=== PATIENT | male | born 1930 | race Caucasian/White ===

== ENCOUNTER 2017-03-25 16:29 | Inpatient (IN) | payer MEDICARE ==
[~2017-03-25] VITALS: Ht 170.2 cm; Wt 67.1 kg
--- NOTE | 2017-03-25 16:36 | PHYS DOC ---
Adult General Chief Complaint Chief Complaint: SUICDAL IDEATION HPI HPI Patient is a 86 year old male who presents with depression. He lives in independent living in a facility. He has a history of dementia, dyslipidemia , hypertension, coronary disease, GERD, traumatic brain injury. According patient he cut his left wrist approximately 2 weeks ago because his isn't doing as well and he is lost interest. He denies any fevers chills nausea vomiting but states he's had some problems urinating recently. States this all started about the same time that he lost interest. He does have a healing abrasion/laceration to his left wrist. He states he's never had issues with depression the past. He does drink 2 shots of whiskey every day. Review of Systems Review of Systems Constitutional: Denies fever or chills [] Eyes: Denies change in visual acuity, redness, or eye pain [] HENT: Denies nasal congestion or sore throat [] Respiratory: Denies cough or shortness of breath [] Cardiovascular: No additional information not addressed in HPI [] GI: Denies abdominal pain, nausea, vomiting, bloody stools or diarrhea [] : Denies dysuria or hematuria [] Musculoskeletal: Denies back pain or joint pain [] Integument: Denies rash or skin lesions [] Neurologic: Denies headache, focal weakness or sensory changes [] Endocrine: Denies polyuria or polydipsia [] Current Medications Current Medications Current Medications Medications (Trade) Dose Ordered Sig/Maurice Start Time Stop Time Status Last Admin Dose Admin Sodium Chloride 1,000 ml @ 1,000 mls/hr 1X ONCE 03/25/17 17:30 03/25/17 18:29 DC 03/25/17 17:28 1,000 MLS/HR Allergies Allergies Allergies Coded Allergies Type Severity Reaction Last Updated Verified No Known Drug Allergies 03/25/17 No Physical Exam Physical Exam Constitutional: Well developed, well nourished, no acute distress, non-toxic appearance. [] HENT: Normocephalic, atraumatic, bilateral external ears normal, oropharynx moist, no oral exudates, nose normal. [] Eyes: PERRLA, EOMI, conjunctiva normal, no discharge. [] Neck: Normal range of motion, no tenderness, supple, no stridor. [] Cardiovascular:Heart rate regular rhythm, no murmur [] Lungs & Thorax: Bilateral breath sounds clear to auscultation [] Abdomen: Bowel sounds normal, soft, no tenderness, no masses, no pulsatile masses. [] Skin: Warm, dry, no erythema, no rash, well healing incision/abrasion of left wrist. [] Back: No tenderness, no CVA tenderness. [] Extremities: No tenderness, no cyanosis, no clubbing, ROM intact, no edema. [] Neurologic: Alert and oriented x 2, normal motor function, normal sensory function, no focal deficits noted. [] Psychologic: Affect normal, judgement normal, mood normal. [] Current Patient Data Vital Signs Vital Signs Date Time Temp Pulse Resp B/P (MAP) Pulse Ox O2 Delivery O2 Flow Rate FiO2 03/25/17 18:03 80 104/82 (89) 96 Room Air 03/25/17 16:46 98.4 18 98.4 Lab Values Laboratory Tests Test 03/25/17 17:15 White Blood Count 21.2 x10^3/uL (4.0-11.0) H Red Blood Count 4.27 x10^6/uL (4.30-5.70) L Hemoglobin 12.7 g/dL (13.0-17.5) L Hematocrit 37.4 % (39.0-53.0) L Mean Corpuscular Volume 88 fL (79-100) Mean Corpuscular Hemoglobin 30 pg (25-35) Mean Corpuscular Hemoglobin Concent 34 g/dL (31-37) Red Cell Distribution Width 16.0 % (11.5-14.5) H Platelet Count 841 x10^3/uL (140-400) H Neutrophils (%) (Auto) 78 % (31-73) H Lymphocytes (%) (Auto) 9 % (24-48) L Monocytes (%) (Auto) 12 % (0-9) H Eosinophils (%) (Auto) 1 % (0-3) Basophils (%) (Auto) 0 % (0-3) Neutrophils # (Auto) 16.5 x10^3uL (1.8-7.7) H Lymphocytes # (Auto) 2.0 x10^3/uL (1.0-4.8) Monocytes # (Auto) 2.5 x10^3/uL (0.0-1.1) H Eosinophils # (Auto) 0.2 x10^3/uL (0.0-0.7) Basophils # (Auto) 0.1 x10^3/uL (0.0-0.2) Segmented Neutrophils % 80 % (35-66) H Band Neutrophils % 3 % (0-9) Lymphocytes % 3 % (24-48) L Atypical Lymphocytes % (Manual) 1 % (0-0) H Monocytes % 11 % (0-10) H Eosinophils % 1 % (0-5) Basophils % 1 % (0-3) Platelet Estimate Increased (ADEQUATE) Giant Platelets Few Anisocytosis Slight Ovalocytes Few Schistocytes Few Sodium Level 130 mmol/L (136-145) L Potassium Level 4.6 mmol/L (3.5-5.1) Chloride Level 94 mmol/L (98-107) L Carbon Dioxide Level 26 mmol/L (21-32) Anion Gap 10 (6-14) Blood Urea Nitrogen 17 mg/dL (8-26) Creatinine 1.0 mg/dL (0.7-1.3) Estimated GFR (Cockcroft-Gault) 70.5 BUN/Creatinine Ratio 17 (6-20) Glucose Level 117 mg/dL (70-99) H Calcium Level 9.1 mg/dL (8.5-10.1) Total Bilirubin 0.4 mg/dL (0.2-1.0) Aspartate Amino Transferase (AST) 27 U/L (15-37) Alanine Aminotransferase (ALT) 32 U/L (16-63) Alkaline Phosphatase 70 U/L (46-116) Total Protein 7.0 g/dL (6.4-8.2) Albumin 3.9 g/dL (3.4-5.0) Albumin/Globulin Ratio 1.3 (1.0-1.7) Salicylates Level < 2.8 mg/dL (2.8-20.0) L Salicylate Last Dose Date Unk Salicylate Last Dose Time Unk Acetaminophen Level < 10 mcg/ml (10-30) L Acetaminophen Last Dose Date Unk Acetaminophen Last Dose Time Unk Ethyl Alcohol Level < 10 mg/dL (0-10) Laboratory Tests 03/25/17 17:15 Laboratory Tests 03/25/17 17:15 EKG EKG EKG shows sinus rhythm 3-60 bpm with left axis deviation, no ST elevations or T- wave inversions noted, QTC 424 ms, as interpreted by me. [] Radiology/Procedures Radiology/Procedures Chest x-ray shows patchy infiltrates in the left lower lobe, no pneumothorax, no bony abnormalities, as interpreted by me. [facility] [address] [place] [address] IMAGING REPORT Signed PATIENT: ALDAIR OLIVAS ACCOUNT: [id number] : 1930 LOCATION: [address] [place] [address] AGE: 86 SEX: M EXAM STATUS: ADM IN ORD. PHYSICIAN: LAMINE RENE MD REASON: abnormal chest xray PROCEDURE: CT CHEST WO CONTRAST PROCEDURE Chest CT without contrast HISTORY Abnormal chest x-ray. No prior study. Elevated white blood cell count. TECHNIQUE Noncontrast helical CT scanning of the chest was performed. One or more of the following individualized dose reduction techniques were utilized for this study: 1. Automated exposure control 2. Adjustment of the mA and/or kV according to patient size 3. Use of iterative reconstruction technique COMPARISON No previous chest CT available. FINDINGS No focal aneurysmal dilatation of the thoracic aorta is seen. Calcified atheromatous disease of the coronary arteries is seen. The heart size is mildly enlarged. No enlarged thoracic lymphadenopathy is seen. No pleural effusion is seen on the left side. There is minimal pleural effusion on the right side. No pneumothorax is seen. There is some linear atelectasis of the right lung base. No consolidative lung infiltrate or lung mass is seen. The proximal bronchial tree is patent. Compression fractures of T2 and T3 and T12 and L1 are seen. There is a severe compression fracture of L1 which is completely flat. 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 There is posterior protrusion of bony elements into the anterior aspect of the spinal canal. This narrows the AP dimension of the spinal canal down to 6 millimeters. No osteolytic process is seen. IMPRESSION Calcified atheromatous disease of the coronary arteries. Mild cardiomegaly. Minimal pleural effusion on the right side. Right lung base atelectasis. Multiple compression fractures of T2 and T3 and L2 and L1. The compression fracture of L1 is severe with posterior protrusion of bony elements into the spinal canal significantly narrowing the AP dimension of spinal canal down to 6 millimeters. Air is seen within this vertebral body consistent with osteonecrosis. Electronically signed by: Robin Henley MD (March 25, 2017 21:03:00) DICTATED and SIGNED BY: ROBIN HENLEY MD DATE: 03/25/172101 CC: LAMINE RENE MD; NORA CARRINGTON MD; JESENIA MCGREGOR MD ~ Impressions: Suicidal ideations Leukocytosis Hyponatremia Alcohol abuse Multiple compression fractures of thoracic and lumbar spine Course & Med Decision Making Course & Med Decision Making Pertinent Labs and Imaging studies reviewed. (See chart for details) Patient has a sodium of 1:30, was 126 earlier today on the outside labs. He does have a leukocytosis of 21,000 with a x-ray that shows patchy infiltrates in bilateral lower lobes. I ordered a CT scan to evaluate this in addition to blood cultures. Patient's in stable condition at this time being admitted with a one-on-one sitter to the hospitalist. Interim orders have been written. The pat team has assessed them and is helping with placement when stable. CT scan shows multiple fractures of his thoracic and lumbar spine. He is not complaining of a pain or tenderness. I did inform Dr. Mcgregor of the CTs findings. CT of his chest did not show any acute abnormalities. I'm not quite sure why he has a leukocytosis at this time. Dragon Disclaimer Dragon Disclaimer This electronic medical record was generated, in whole or in part, using a voice recognition dictation system. Departure Departure Impression: Primary Impression: Leukocytosis Disposition: ADMITTED INPATIENT Admitting Physician: Miguel Mcgregor Condition: STABLE LAMINE RENE MD March 25, 2017 16:36
--- NOTE | 2017-03-25 17:13 | EKG ---
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
[2017-03-25 17:23] LABS: BASO # 0.1 x10^3/uL (0.0-0.2); BASO % 0 % (0-3); EOS % 1 % (0-3); HEMATOCRIT 37.4 % (39.0-53.0); HEMOGLOBIN 12.7 g/dL (13.0-17.5); LYMPH % 9 % (24-48); MEAN CORPUSCULAR HEMOGLOBIN 30 pg (25-35); MEAN CORPUSCULAR HGB CONC 34 g/dL (31-37); MEAN CORPUSCULAR VOLUME 88 fL (79-100); MONO % 12 % (0-9); NEUT % 78 % (31-73); PLATELET COUNT 841 x10^3/uL (140-400); RED BLOOD COUNT 4.27 x10^6/uL (4.30-5.70); WHITE BLOOD COUNT 21.2 x10^3/uL (4.0-11.0)
[2017-03-25] MEDS ORDERED: IV NORMAL SALINE 1000ML BAG 1,000 ML IV ONE (17:30)
[2017-03-25 17:37] LABS: CALCIUM 9.1 mg/dL (8.5-10.1); GFR 70.5; POTASSIUM 4.6 mmol/L (3.5-5.1)
[2017-03-25 17:41] LABS: ETHANOL < 10 mg/dL (0-10)
[2017-03-25 17:43] LABS: ALBUMIN 3.9 g/dL (3.4-5.0); ALBUMIN/GLOBULIN RATIO 1.3 (1.0-1.7); TOTAL BILIRUBIN 0.4 mg/dL (0.2-1.0)
[2017-03-25 18:41] LABS: % BASOS 1 % (0-3); % EOS 1 % (0-5); PLT ESTIMATE INCREASED (ADEQUATE)
[2017-03-25 18:42] LABS: ANISOCYTOSIS SLIGHT; OVALOCYTES FEW; SCHISTOCYTES FEW
[2017-03-25 19:24] LABS: BILIRUBIN,URINE NEGATIVE (NEG); GLUCOSE,URINE NEGATIVE (NEG); NITRITE,URINE NEGATIVE (NEG); PROTEIN,URINE NEGATIVE (NEG-TRACE); UROBILINOGEN,URINE 0.2 mg/dL (0.2 mg/dL)
[2017-03-25 19:31] LABS: BARBITURATES NEG (NEG); BENZODIAZEPINES NEG (NEG); CANNABINOIDS NEG (NEG); COCAINE NEG (NEG); METHADONE NEG (NEG); OPIATES NEG (NEG); PHENCYCLIDINE NEG (NEG)
[2017-03-25 19:39] LABS: BACTERIA,URINE 0 /HPF (0-FEW); WBC,URINE 0 /HPF (0-4)
--- NOTE | 2017-03-25 21:03 | RAD ---
PROCEDURE Chest CT without contrast HISTORY Abnormal chest x-ray. No prior study. Elevated white blood cell count. TECHNIQUE Noncontrast helical CT scanning of the chest was performed. One or more of the following individualized dose reduction techniques were utilized for this study: 1. Automated exposure control 2. Adjustment of the mA and/or kV according to patient size 3. Use of iterative reconstruction technique COMPARISON No previous chest CT available. FINDINGS No focal aneurysmal dilatation of the thoracic aorta is seen. Calcified atheromatous disease of the coronary arteries is seen. The heart size is mildly enlarged. No enlarged thoracic lymphadenopathy is seen. No pleural effusion is seen on the left side. There is minimal pleural effusion on the right side. No pneumothorax is seen. There is some linear atelectasis of the right lung base. No consolidative lung infiltrate or lung mass is seen. The proximal bronchial tree is patent. Compression fractures of T2 and T3 and T12 and L1 are seen. There is a severe compression fracture of L1 which is completely flat. 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 There is posterior protrusion of bony elements into the anterior aspect of the spinal canal. This narrows the AP dimension of the spinal canal down to 6 millimeters. No osteolytic process is seen. IMPRESSION Calcified atheromatous disease of the coronary arteries. Mild cardiomegaly. Minimal pleural effusion on the right side. Right lung base atelectasis. Multiple compression fractures of T2 and T3 and L2 and L1. The compression fracture of L1 is severe with posterior protrusion of bony elements into the spinal canal significantly narrowing the AP dimension of spinal canal down to 6 millimeters. Air is seen within this vertebral body consistent with osteonecrosis. Electronically signed by: Fly Henley MD (March 25, 2017 21:03:00)
[2017-03-25 22:30] VITALS: BP 145/82
--- NOTE | 2017-03-25 23:20 | RAD ---
PROCEDURE CT head without contrast HISTORY Dizziness TECHNIQUE Axial images are obtained of the head from the skull base through the vertex without IV contrast COMPARISON None. FINDINGS There is moderate diffuse atrophy. There is mild chronic white matter changes. The ventricles are appropriate in size, shape, and location for the patient's age.No obvious intracranial mass, mass-effect, midline shift, hemorrhage or obvious acute infarction is identified.Basilar cisterns are patent. Bone windows demonstrate no acute calvarial abnormality.The visualized paranasal sinuses appear clear. IMPRESSION No acute intracranial process. PQRS Statement: One or more of the following individualized dose reduction techniques were utilized for this study: 1. Automated exposure control. 2. Adjustment of the mA and/or kV according to patient size. 3. Use of iterative reconstruction technique. Electronically signed by: Cezar Miranda MD (March 25, 2017 23:18:15)
[2017-03-26] VITALS (7 sets, daily range): BP systolic 93–149; BP diastolic 52–89
[2017-03-26] MEDS ORDERED: BISA10SU55 RC (00:56)
[2017-03-26] MEDS ORDERED: LORA0.5T PO (00:56)
[2017-03-26] MEDS ORDERED: LISI10TA2 PO (00:56)
[2017-03-26] MEDS ORDERED: MELA3TAB PO (01:00)
[2017-03-26] MEDS ORDERED: QUET50TA5 PO (01:00)
[2017-03-26] MEDS ORDERED: MULT1TAB52 PO (01:00)
[2017-03-26] MEDS ORDERED: SENN8.6T3 PO (01:00)
[2017-03-26] MEDS ORDERED: ACET325T9 PO (01:00)
[2017-03-26] MEDS ORDERED: QUET25TA5 PO (01:00)
[2017-03-26] MEDS ORDERED: SIMV10TA3 PO (01:00)
[2017-03-26] MEDS ORDERED: METO50TA2 PO (01:00)
[2017-03-26 03:39] LABS: BASO % 0 % (0-3); EOS % 2 % (0-3); HEMATOCRIT 36.6 % (39.0-53.0); HEMOGLOBIN 12.4 g/dL (13.0-17.5); LYMPH % 12 % (24-48); MEAN CORPUSCULAR HEMOGLOBIN 30 pg (25-35); MEAN CORPUSCULAR HGB CONC 34 g/dL (31-37); MEAN CORPUSCULAR VOLUME 88 fL (79-100); MONO % 13 % (0-9); NEUT % 73 % (31-73); PLATELET COUNT 721 x10^3/uL (140-400); RED BLOOD COUNT 4.17 x10^6/uL (4.30-5.70); RED CELL DISTRIBUTION WIDTH 15.8 % (11.5-14.5); WHITE BLOOD COUNT 16.8 x10^3/uL (4.0-11.0)
[2017-03-26 04:05] LABS: CALCIUM 8.5 mg/dL (8.5-10.1); CREATININE 0.8 mg/dL (0.7-1.3); GFR 91.2
--- NOTE | 2017-03-26 07:49 | RAD ---
Portable chest, 03/25/2017: History: Elevated white blood cell count The heart is at the upper limits of normal in size. There is calcific plaquing of the aorta. The pulmonary vascularity is normal. There are mild streaky basilar opacities, right greater than left. There is slight pleural thickening inferolaterally on the right compatible with scarring versus a tiny amount pleural fluid. Scattered degenerative changes are present in the spine. IMPRESSION: 1. Borderline cardiomegaly and aortic atherosclerosis. 2. Mild streaky bibasilar atelectasis and/or scarring. 3. Possible tiny right pleural effusion.
[2017-03-26] MEDS ORDERED: chlordiazePOXIDE HCL 25 MG CAPSULE PO PRN (09:30)
[2017-03-26] MEDS ORDERED: BISACODYL 10 MG SUPP.RECT. RC PRN (09:30)
[2017-03-26] MEDS ORDERED: ACETAMINOPHEN 325 MG TABLET. PO PRN (09:30)
[2017-03-26] MEDS: QUEtiapine 25 MG TABLET. PO SCH ×2 (09:43→20:42)
[2017-03-26] MEDS: SENNOSIDES 8.6 MG TABLET PO SCH (09:43)
[2017-03-26] MEDS: MULTIVITAMIN with MINERAL TABLET. PO SCH (09:43)
[2017-03-26] MEDS: LISINOPRIL 10 MG TABLET PO SCH (09:47)
[2017-03-26] MEDS: METOPROLOL TART IMMED RELEASE 50 MG TABLET. PO SCH (09:48)
--- NOTE | 2017-03-26 12:09 | PDOC1 ---
History and Physical Date of Admission Date of Admission DATE: 03/26/17 TIME: 11:59 Identification/Chief Complaint Chief Complaint sent from Lore Lancaster of "depression", MS change Problems: Source Source: Caregiver, Chart review, Patient History of Present Illness History of Present Illness Poor historian, sitter at bedside, HPI mostly taken from ER chart. Apparently whisky drinker everyday, depressed over loss of ? In any case, admitted for hyponatremia of 130-132. when he was brought in for mental status change, presumably from etoh. WBC 21 on admit, down to 16, source unclear. CXR shows some scarring atelectasis , but no signs of active infection (I have personally reviewed), Pt denies any URI sxs, UA neg UDS neg, etoh undetectable BUt looking at rest of labs, platelets 700s, hgb 9 or 11. Unknown status re this thrombocytosis etc, NO family at bedside Ate breakfast fine. \\NO documentation of recent steroid use Past Medical History Cardiovascular: CAD, CHF, HTN, Hyperlipidemia Psych: Depression Past Surgical History Past Surgical History: No pertinent history Family History Family History: Family History Unknown Social History Smoke: No ALCOHOL: none Drugs: None Current Problem List Problem List Problems Medical Problems: (1) Leukocytosis Status: Acute Problems: Current Medications Current Medications Current Medications Sodium Chloride 1,000 ml @ 1,000 mls/hr 1X ONCE IV Last administered on 17:28; Start 03/25/17 at 17:30; Stop 03/25/17 at 18:29; Status DC Acetaminophen (Tylenol) 650 mg PRN Q4HRS PRN PO PAIN; Start 03/26/17 at 09:30 Bisacodyl (Dulcolax Supp) 10 mg PRN DAILY PRN RC CONSTIPATION; Start 03/26/17 at 09:30 Lisinopril (Prinivil) 10 mg DAILY PO Last administered on 03/26/17 09:47; Start 03/26/17 at 10:00 Lorazepam (Ativan) 0.5 mg PRN Q6HRS PRN PO AGITATION; Start 03/26/17 at 09:30 Metoprolol Tartrate (Lopressor) 50 mg DAILY PO Last administered on 03/26/17 09 :48; Start 03/26/17 at 10:00 Quetiapine Fumarate (SEROquel) 12.5 mg BID PO Last administered on 03/26/17 09: 43; Start 03/26/17 at 10:00 Sennosides (Senna) 8.6 mg DAILY PO Last administered on 03/26/17 09:43; Start 03/26/17 at 10:00 Simvastatin (Zocor) 10 mg HS PO ; Start 03/26/17 at 21:00 Non-Formulary Medication 5 mg HS PO ; Start 03/26/17 at 21:00; Status UNV Multivitamins (Thera M Plus) 1 tab DAILY PO Last administered on 03/26/17 09:43 ; Start 03/26/17 at 10:00 Quetiapine Fumarate (SEROquel XR) 50 mg HS PO ; Start 03/26/17 at 21:00 Chlordiazepoxide (Librium) 25 mg PRN Q6HRS PRN PO ANXIETY / AGITATION; Start at 09:30 Active Scripts Active Reported Tylenol (Acetaminophen) 325 Mg Tablet 2 Tab PO PRN Q4HRS PRN Simvastatin 10 Mg Tablet 10 Mg PO HS Seroquel (Quetiapine Fumarate) 25 Mg Tablet 0.5 Tab PO BID Senna (Sennosides) 8.6 Mg Tablet 8.6 Mg PO DAILY Seroquel (Quetiapine Fumarate) 50 Mg Tablet 50 Mg PO HS Multivitamins (Multivitamin) 1 Each Tablet 1 Each PO DAILY Metoprolol Tartrate 50 Mg Tablet 50 Mg PO DAILY Melatonin 3 Mg Tablet 5 Mg PO HS Lorazepam 0.5 Mg Tablet 0.5 Mg PO PRN Q6HRS PRN Lisinopril 10 Mg Tablet 10 Mg PO DAILY Dulcolax (Bisacodyl) 10 Mg Supp.rect 10 Mg RC PRN DAILY PRN Allergies Allergies: Coded Allergies: No Known Drug Allergies (Unverified , 03/25/17) ROS Review of System unable to obtain confused Physical Exam General: Alert, Cooperative, No acute distress HEENT: Atraumatic, PERRLA, EOMI Lungs: Clear to auscultation, Normal air movement Heart: S1S2, RRR, no thrills, no rubs, no gallops Cardiovascular: S1, S2 Abdomen: Normal bowel sounds, Soft, No tenderness, No hepatosplenomegaly, No masses Male Genitals Exam: normal genitalia, normal prostate Rectal Exam: not examined PELVIC: Nml ext genitalia Extremities: No clubbing, No cyanosis, No edema, Normal pulses, No tenderness/ swelling Skin: No rashes, No breakdown, No significant lesion Neuro: Normal gait, Normal speech, Strength at 5/5 X4 ext, Normal tone, Sensation intact, Cranial nerves 3-12 NL, Reflexes 2+ Vitals Vitals Vital Signs Date Time Temp Pulse Resp B/P (MAP) Pulse Ox O2 Delivery O2 Flow Rate FiO2 03/26/17 10:46 97.4 62 15 93/52 (66) 95 Room Air 97.4 Labs Labs Laboratory Tests Test 03/25/17 17:15 03/25/17 19:16 03/26/17 03:00 White Blood Count 21.2 x10^3/uL (4.0-11.0) 16.8 x10^3/uL (4.0-11.0) Red Blood Count 4.27 x10^6/uL (4.30-5.70) 4.17 x10^6/uL (4.30-5.70) Hemoglobin 12.7 g/dL (13.0-17.5) 12.4 g/dL (13.0-17.5) Hematocrit 37.4 % (39.0-53.0) 36.6 % (39.0-53.0) Mean Corpuscular Volume 88 fL (79-100) 88 fL (79-100) Mean Corpuscular Hemoglobin 30 pg (25-35) 30 pg (25-35) Mean Corpuscular Hemoglobin Concent 34 g/dL (31-37) 34 g/dL (31-37) Red Cell Distribution Width 16.0 % (11.5-14.5) 15.8 % (11.5-14.5) Platelet Count 841 x10^3/uL (140-400) 721 x10^3/uL (140-400) Neutrophils (%) (Auto) 78 % (31-73) 73 % (31-73) Lymphocytes (%) (Auto) 9 % (24-48) 12 % (24-48) Monocytes (%) (Auto) 12 % (0-9) 13 % (0-9) Eosinophils (%) (Auto) 1 % (0-3) 2 % (0-3) Basophils (%) (Auto) 0 % (0-3) 0 % (0-3) Neutrophils # (Auto) 16.5 x10^3uL (1.8-7.7) 12.3 x10^3uL (1.8-7.7) Lymphocytes # (Auto) 2.0 x10^3/uL (1.0-4.8) 2.0 x10^3/uL (1.0-4.8) Monocytes # (Auto) 2.5 x10^3/uL (0.0-1.1) 2.2 x10^3/uL (0.0-1.1) Eosinophils # (Auto) 0.2 x10^3/uL (0.0-0.7) 0.3 x10^3/uL (0.0-0.7) Basophils # (Auto) 0.1 x10^3/uL (0.0-0.2) 0.0 x10^3/uL (0.0-0.2) Segmented Neutrophils % 80 % (35-66) Band Neutrophils % 3 % (0-9) Lymphocytes % 3 % (24-48) Atypical Lymphocytes % (Manual) 1 % (0-0) Monocytes % 11 % (0-10) Eosinophils % 1 % (0-5) Basophils % 1 % (0-3) Platelet Estimate Increased (ADEQUATE) Giant Platelets Few Anisocytosis Slight Ovalocytes Few Schistocytes Few Sodium Level 130 mmol/L (136-145) 132 mmol/L (136-145) Potassium Level 4.6 mmol/L (3.5-5.1) 4.0 mmol/L (3.5-5.1) Chloride Level 94 mmol/L (98-107) 97 mmol/L (98-107) Carbon Dioxide Level 26 mmol/L (21-32) 29 mmol/L (21-32) Anion Gap 10 (6-14) 6 (6-14) Blood Urea Nitrogen 17 mg/dL (8-26) 12 mg/dL (8-26) Creatinine 1.0 mg/dL (0.7-1.3) 0.8 mg/dL (0.7-1.3) Estimated GFR (Cockcroft-Gault) 70.5 91.2 BUN/Creatinine Ratio 17 (6-20) Glucose Level 117 mg/dL (70-99) 107 mg/dL (70-99) Calcium Level 9.1 mg/dL (8.5-10.1) 8.5 mg/dL (8.5-10.1) Total Bilirubin 0.4 mg/dL (0.2-1.0) Aspartate Amino Transf (AST/SGOT) 27 U/L (15-37) Alanine Aminotransferase (ALT/SGPT) 32 U/L (16-63) Alkaline Phosphatase 70 U/L (46-116) Total Protein 7.0 g/dL (6.4-8.2) Albumin 3.9 g/dL (3.4-5.0) Albumin/Globulin Ratio 1.3 (1.0-1.7) Salicylates Level < 2.8 mg/dL (2.8-20.0) Salicylate Last Dose Date Unk Salicylate Last Dose Time Unk Acetaminophen Level < 10 mcg/ml (10-30) Acetaminophen Last Dose Date Unk Acetaminophen Last Dose Time Unk Ethyl Alcohol Level < 10 mg/dL (0-10) Urine Collection Type Unknown Urine Color Yellow Urine Clarity Clear Urine pH 6.0 Urine Specific [place] 1.020 Urine Protein Negative mg/dL (NEG-TRACE) Urine Glucose (UA) Negative mg/dL (NEG) Urine Ketones (Stick) Negative mg/dL (NEG) Urine Blood Small (NEG) Urine Nitrite Negative (NEG) Urine Bilirubin Negative (NEG) Urine Urobilinogen Dipstick 0.2 mg/dL (0.2 mg/dL) Urine Leukocyte Esterase Negative (NEG) Urine RBC 6-10 /HPF (0-2) Urine WBC 0 /HPF (0-4) Urine Bacteria 0 /HPF (0-FEW) Urine Mucus Slight /LPF Urine Opiates Screen Neg (NEG) Urine Methadone Screen Neg (NEG) Urine Barbiturates Neg (NEG) Urine Phencyclidine Screen Neg (NEG) Urine Amphetamine/Methamphetamine Neg (NEG) Urine Benzodiazepines Screen Neg (NEG) Urine Cocaine Screen Neg (NEG) Urine Cannabinoids Screen Neg (NEG) Urine Ethyl Alcohol Neg (NEG) Laboratory Tests Test 03/25/17 17:15 03/25/17 19:16 03/26/17 03:00 White Blood Count 21.2 x10^3/uL (4.0-11.0) 16.8 x10^3/uL (4.0-11.0) Red Blood Count 4.27 x10^6/uL (4.30-5.70) 4.17 x10^6/uL (4.30-5.70) Hemoglobin 12.7 g/dL (13.0-17.5) 12.4 g/dL (13.0-17.5) Hematocrit 37.4 % (39.0-53.0) 36.6 % (39.0-53.0) Mean Corpuscular Volume 88 fL (79-100) 88 fL (79-100) Mean Corpuscular Hemoglobin 30 pg (25-35) 30 pg (25-35) Mean Corpuscular Hemoglobin Concent 34 g/dL (31-37) 34 g/dL (31-37) Red Cell Distribution Width 16.0 % (11.5-14.5) 15.8 % (11.5-14.5) Platelet Count 841 x10^3/uL (140-400) 721 x10^3/uL (140-400) Neutrophils (%) (Auto) 78 % (31-73) 73 % (31-73) Lymphocytes (%) (Auto) 9 % (24-48) 12 % (24-48) Monocytes (%) (Auto) 12 % (0-9) 13 % (0-9) Eosinophils (%) (Auto) 1 % (0-3) 2 % (0-3) Basophils (%) (Auto) 0 % (0-3) 0 % (0-3) Neutrophils # (Auto) 16.5 x10^3uL (1.8-7.7) 12.3 x10^3uL (1.8-7.7) Lymphocytes # (Auto) 2.0 x10^3/uL (1.0-4.8) 2.0 x10^3/uL (1.0-4.8) Monocytes # (Auto) 2.5 x10^3/uL (0.0-1.1) 2.2 x10^3/uL (0.0-1.1) Eosinophils # (Auto) 0.2 x10^3/uL (0.0-0.7) 0.3 x10^3/uL (0.0-0.7) Basophils # (Auto) 0.1 x10^3/uL (0.0-0.2) 0.0 x10^3/uL (0.0-0.2) Segmented Neutrophils % 80 % (35-66) Band Neutrophils % 3 % (0-9) Lymphocytes % 3 % (24-48) Atypical Lymphocytes % (Manual) 1 % (0-0) Monocytes % 11 % (0-10) Eosinophils % 1 % (0-5) Basophils % 1 % (0-3) Platelet Estimate Increased (ADEQUATE) Giant Platelets Few Anisocytosis Slight Ovalocytes Few Schistocytes Few Sodium Level 130 mmol/L (136-145) 132 mmol/L (136-145) Potassium Level 4.6 mmol/L (3.5-5.1) 4.0 mmol/L (3.5-5.1) Chloride Level 94 mmol/L (98-107) 97 mmol/L (98-107) Carbon Dioxide Level 26 mmol/L (21-32) 29 mmol/L (21-32) Anion Gap 10 (6-14) 6 (6-14) Blood Urea Nitrogen 17 mg/dL (8-26) 12 mg/dL (8-26) Creatinine 1.0 mg/dL (0.7-1.3) 0.8 mg/dL (0.7-1.3) Estimated GFR (Cockcroft-Gault) 70.5 91.2 BUN/Creatinine Ratio 17 (6-20) Glucose Level 117 mg/dL (70-99) 107 mg/dL (70-99) Calcium Level 9.1 mg/dL (8.5-10.1) 8.5 mg/dL (8.5-10.1) Total Bilirubin 0.4 mg/dL (0.2-1.0) Aspartate Amino Transf (AST/SGOT) 27 U/L (15-37) Alanine Aminotransferase (ALT/SGPT) 32 U/L (16-63) Alkaline Phosphatase 70 U/L (46-116) Total Protein 7.0 g/dL (6.4-8.2) Albumin 3.9 g/dL (3.4-5.0) Albumin/Globulin Ratio 1.3 (1.0-1.7) Salicylates Level < 2.8 mg/dL (2.8-20.0) Salicylate Last Dose Date Unk Salicylate Last Dose Time Unk Acetaminophen Level < 10 mcg/ml (10-30) Acetaminophen Last Dose Date Unk Acetaminophen Last Dose Time Unk Ethyl Alcohol Level < 10 mg/dL (0-10) Urine Collection Type Unknown Urine Color Yellow Urine Clarity Clear Urine pH 6.0 Urine Specific [place] 1.020 Urine Protein Negative mg/dL (NEG-TRACE) Urine Glucose (UA) Negative mg/dL (NEG) Urine Ketones (Stick) Negative mg/dL (NEG) Urine Blood Small (NEG) Urine Nitrite Negative (NEG) Urine Bilirubin Negative (NEG) Urine Urobilinogen Dipstick 0.2 mg/dL (0.2 mg/dL) Urine Leukocyte Esterase Negative (NEG) Urine RBC 6-10 /HPF (0-2) Urine WBC 0 /HPF (0-4) Urine Bacteria 0 /HPF (0-FEW) Urine Mucus Slight /LPF Urine Opiates Screen Neg (NEG) Urine Methadone Screen Neg (NEG) Urine Barbiturates Neg (NEG) Urine Phencyclidine Screen Neg (NEG) Urine Amphetamine/Methamphetamine Neg (NEG) Urine Benzodiazepines Screen Neg (NEG) Urine Cocaine Screen Neg (NEG) Urine Cannabinoids Screen Neg (NEG) Urine Ethyl Alcohol Neg (NEG) VTE Prophylaxis Ordered VTE Prophylaxis Devices: Yes VTE Pharmacological Prophylaxi: Yes Assessment/Plan Assessment/Plan 1. Hyponatremia, mild 2. Dementia, hx TBI per documentation 3. Leukocytosis, thrombocytosis, anemia - no signs of infection 4. ETOH drinker, heavy 5. Hx CAD, stab;e 6. Dementia per documentation 7. [place] resident ([place]) 8. DNR PLAn: I started banana bag- might just do 1 in this elderly then do PO MVI, thimaine, folate SItter COnsult heme onc re leukocytosis, thrombocytosis in the 700s PT/OT DVt prophy DNR Resume home meds Monitor CBC MOnitor for etoh withdrawal GEOVANNI MCNAMARA MD March 26, 2017 12:09
--- NOTE | 2017-03-26 12:39 | PDOC ---
Provider Note Provider Note Onc consult dictated- [id number] Essential thrombocytosis- Followed since 2013 with ASA 81 mg daily only. Given stability and more pressing health concerns currently, would continue same mgt. Neutrophilia- Likely reactive Severe depression, suicidal ideation, alcohol abuse- Per primary. MISAEL RAMAN DO March 26, 2017 12:39
[2017-03-26] MEDS: THIAMINE 100 MG TABLET. PO SCH (14:16)
[2017-03-26] MEDS: ASPIRIN ENTERIC COATED 81 MG TABLET.DR. PO SCH (14:16)
[2017-03-26] MEDS: FOLIC ACID 1 MG TABLET. PO SCH (14:16)
[2017-03-26] MEDS: LORazepam 0.5 MG TABLET PO PRN ×2 (17:27→23:18)
[2017-03-26] MEDS: SIMVASTATIN 10 MG TABLET PO SCH (20:42)
[2017-03-26] MEDS: QUEtiapine 50 MG TAB.ER.24H. PO SCH (20:42)
[2017-03-26] MEDS ORDERED: NON FORMULARY ITEM (Melatonin 5 MG) PO SCH (21:00)
[2017-03-27] MEDS ORDERED: HALOPERIDOL LACTATE 5 MG/ML VIAL. IVP PRN
--- NOTE | 2017-03-27 01:28 | CONS ---
DATE OF CONSULTATION: 03/26/2017 REFERRING PROVIDER: Dr. Donato. REASON FOR CONSULTATION: Neutrophilia and thrombocytosis. HISTORY OF PRESENT ILLNESS: The patient is an 86-year-old male who was admitted to the hospital with altered mental status, depression and suicidal ideation. He himself is a very poor historian. I reviewed both [facility] ER notes and outside Oncology notes. He has been seen since [address] Maximus Madrid for his thrombocytosis, JAK2 positive, likely essential thrombocytosis. He has been on aspirin 81 mg daily previously. His platelet counts generally run around 700-800. Per the last Oncology note available from 2015, if his platelet count reached 1000, anagrelide would be initiated. Per review of the medical record here, he has had significant depression following the loss of his with a suicidal attempt in the last few weeks. He is drinking 2 shots of whiskey daily and is very withdrawn. He also has some mild neutrophilia with WBC 21, down to 16.8 today. His only complaint is urinary retention. PAST MEDICAL HISTORY: Significant depression recently, hyperlipidemia, heart disease, CAD, GERD, TBI, thrombocytosis. PAST SURGICAL HISTORY: Skin biopsy. FAMILY HISTORY: Unable to obtain, not pertinent with his advanced age. SOCIAL HISTORY: Two shots of whiskey daily. Quit smoking in the , recent loss of his . ALLERGIES: No known drug allergies. CURRENT MEDICATIONS: Seroquel, simvastatin, thiamine, folic acid, multivitamins, Senokot-S, metoprolol, lisinopril, Librium, Ativan, Dulcolax and Tylenol. REVIEW OF SYSTEMS: Ten-point review of systems attempted, but unremarkable with the exception of that mentioned in the HPI. He is very withdrawn. PHYSICAL EXAMINATION: VITAL SIGNS: Temperature 97.4, pulse 62, respiratory rate 15, blood pressure 93/52, 95% O2 on room air. GENERAL: He is alert. He is very withdrawn and does not readily provide medical information, stares blankly ahead, no distress at this time. HEENT: Dry mucous membranes. No scleral icterus. CARDIOVASCULAR: Heart is regular in rhythm and rate. LUNGS: Clear to auscultation bilaterally. ABDOMEN: Soft, nontender. EXTREMITIES: No edema. NEUROLOGIC: No focal deficits. PSYCHIATRIC: Very depressed, withdrawn. IMAGING AND LABORATORY DATA: WBC 21.2, now down to 16.8, and strong neutrophil predominance, platelets 841 down to 721 today. Hemoglobin 12.7. CMP notable for sodium 130. CT of head and chest have been negative with the exception of compression fractures noted. ASSESSMENT AND PLAN: The patient is an 86-year-old male with the following medical problems: 1. Chronic thrombocytosis since at least 2013, likely essential thrombocytosis given the JAK2 positivity. Per review of previous outside oncology note, it was recommended he would take aspirin [address] Madrid did not want to start anagrelide unless if platelets reach over 1000. Given his more pressing medical issues of active suicidal ideation and significant depression, it is not pertinent to start any medication at this time, continue aspirin 81 mg daily, which I will add to his medication list. 2. Depression, suicidal ideation. Thank you for allowing me to participate in his care. MISAEL RAMAN DO DR: BERE/bekah JOB#: [id number] / [id number] JOSSE
[2017-03-27 03:00] VITALS: BP 125/92
[2017-03-27 05:45] LABS: BASO # 0.1 x10^3/uL (0.0-0.2); BASO % 1 % (0-3); EOS % 3 % (0-3); HEMATOCRIT 35.5 % (39.0-53.0); LYMPH % 14 % (24-48); MEAN CORPUSCULAR HEMOGLOBIN 30 pg (25-35); MEAN CORPUSCULAR HGB CONC 34 g/dL (31-37); MEAN CORPUSCULAR VOLUME 88 fL (79-100); MONO % 14 % (0-9); NEUT % 68 % (31-73); PLATELET COUNT 632 x10^3/uL (140-400); RED BLOOD COUNT 4.05 x10^6/uL (4.30-5.70); RED CELL DISTRIBUTION WIDTH 16.1 % (11.5-14.5)
[2017-03-27 07:04] VITALS: BP 114/66
[2017-03-27] MEDS: ASPIRIN ENTERIC COATED 81 MG TABLET.DR. PO SCH (08:00)
[2017-03-27] MEDS: FOLIC ACID 1 MG TABLET. PO SCH (09:00)
[2017-03-27] MEDS: THIAMINE 100 MG TABLET. PO SCH (09:00)
[2017-03-27] MEDS: SENNOSIDES 8.6 MG TABLET PO SCH (09:00)
[2017-03-27] MEDS: LISINOPRIL 10 MG TABLET PO SCH (09:00)
[2017-03-27] MEDS: MULTIVITAMIN with MINERAL TABLET. PO SCH (09:00)
[2017-03-27] MEDS: QUEtiapine 25 MG TABLET. PO SCH ×2 (09:00→21:00)
[2017-03-27] MEDS: METOPROLOL TART IMMED RELEASE 50 MG TABLET. PO SCH (09:00)
[2017-03-27 10:02] VITALS: BP 138/81
--- NOTE | 2017-03-27 11:09 | PDOC ---
PROGRESS NOTES Chief Complaint Chief Complaint 1. Hyponatremia, mild 2. Dementia, hx TBI per documentation 3. Leukocytosis, thrombocytosis, anemia - no signs of infection 4. ETOH drinker, heavy 5. Hx CAD, stab;e 6. Dementia per documentation 7. [place] resident ([place]) 8. DNR 9. DEPRESSION, NON SUICIDAL 10. ENCEPHALOPATHY History of Present Illness History of Present Illness Call last night bec of aggressive behavior needed ativan and haldol NOw asleep BM, aleshater changing him LIves in [facility] - unsure if [facility] can accept if this behavior continues Seen by [place] on wednesday before the agitation - no change in dc disposition PLAn: Dec haldol and ativan dose COnt sitter [facility] psych screen might be in order Vitals Vitals Vital Signs Date Time Temp Pulse Resp B/P (MAP) Pulse Ox O2 Delivery O2 Flow Rate FiO2 03/27/17 10:02 98.7 61 15 138/81 (100) 98 Room Air 95.0 98.7 Physical Exam General: Alert, Cooperative, No acute distress Abdomen: Normal bowel sounds, Soft, No tenderness, No hepatosplenomegaly, No masses Extremities: No clubbing, No cyanosis, No edema, Normal pulses, No tenderness/ swelling Skin: No rashes, No breakdown, No significant lesion Labs LABS Laboratory Tests Test 03/27/17 05:00 White Blood Count 14.0 x10^3/uL (4.0-11.0) Red Blood Count 4.05 x10^6/uL (4.30-5.70) Hemoglobin 12.0 g/dL (13.0-17.5) Hematocrit 35.5 % (39.0-53.0) Mean Corpuscular Volume 88 fL (79-100) Mean Corpuscular Hemoglobin 30 pg (25-35) Mean Corpuscular Hemoglobin Concent 34 g/dL (31-37) Red Cell Distribution Width 16.1 % (11.5-14.5) Platelet Count 632 x10^3/uL (140-400) Neutrophils (%) (Auto) 68 % (31-73) Lymphocytes (%) (Auto) 14 % (24-48) Monocytes (%) (Auto) 14 % (0-9) Eosinophils (%) (Auto) 3 % (0-3) Basophils (%) (Auto) 1 % (0-3) Neutrophils # (Auto) 9.6 x10^3uL (1.8-7.7) Lymphocytes # (Auto) 2.0 x10^3/uL (1.0-4.8) Monocytes # (Auto) 2.0 x10^3/uL (0.0-1.1) Eosinophils # (Auto) 0.4 x10^3/uL (0.0-0.7) Basophils # (Auto) 0.1 x10^3/uL (0.0-0.2) Magnesium Level 2.1 mg/dL (1.8-2.4) Review of Systems Review of Systems cant obtain Assessment and Plan Assessmemt and Plan Problems Medical Problems: (1) Leukocytosis Status: Acute Problems: Comment Review of Relevant I have reviewed the following items fernando (where applicable) has been applied. Labs Laboratory Tests Test 03/25/17 17:15 03/25/17 19:16 03/26/17 03:00 03/27/17 05:00 White Blood Count 21.2 x10^3/uL (4.0-11.0) 16.8 x10^3/uL (4.0-11.0) 14.0 x10^3/uL (4.0-11.0) Red Blood Count 4.27 x10^6/uL (4.30-5.70) 4.17 x10^6/uL (4.30-5.70) 4.05 x10^6/uL (4.30-5.70) Hemoglobin 12.7 g/dL (13.0-17.5) 12.4 g/dL (13.0-17.5) 12.0 g/dL (13.0-17.5) Hematocrit 37.4 % (39.0-53.0) 36.6 % (39.0-53.0) 35.5 % (39.0-53.0) Mean Corpuscular Volume 88 fL (79-100) 88 fL (79-100) 88 fL (79-100) Mean Corpuscular Hemoglobin 30 pg (25-35) 30 pg (25-35) 30 pg (25-35) Mean Corpuscular Hemoglobin Concent 34 g/dL (31-37) 34 g/dL (31-37) 34 g/dL (31-37) Red Cell Distribution Width 16.0 % (11.5-14.5) 15.8 % (11.5-14.5) 16.1 % (11.5-14.5) Platelet Count 841 x10^3/uL (140-400) 721 x10^3/uL (140-400) 632 x10^3/uL (140-400) Neutrophils (%) (Auto) 78 % (31-73) 73 % (31-73) 68 % (31-73) Lymphocytes (%) (Auto) 9 % (24-48) 12 % (24-48) 14 % (24-48) Monocytes (%) (Auto) 12 % (0-9) 13 % (0-9) 14 % (0-9) Eosinophils (%) (Auto) 1 % (0-3) 2 % (0-3) 3 % (0-3) Basophils (%) (Auto) 0 % (0-3) 0 % (0-3) 1 % (0-3) Neutrophils # (Auto) 16.5 x10^3uL (1.8-7.7) 12.3 x10^3uL (1.8-7.7) 9.6 x10^3uL (1.8-7.7) Lymphocytes # (Auto) 2.0 x10^3/uL (1.0-4.8) 2.0 x10^3/uL (1.0-4.8) 2.0 x10^3/uL (1.0-4.8) Monocytes # (Auto) 2.5 x10^3/uL (0.0-1.1) 2.2 x10^3/uL (0.0-1.1) 2.0 x10^3/uL (0.0-1.1) Eosinophils # (Auto) 0.2 x10^3/uL (0.0-0.7) 0.3 x10^3/uL (0.0-0.7) 0.4 x10^3/uL (0.0-0.7) Basophils # (Auto) 0.1 x10^3/uL (0.0-0.2) 0.0 x10^3/uL (0.0-0.2) 0.1 x10^3/uL (0.0-0.2) Segmented Neutrophils % 80 % (35-66) Band Neutrophils % 3 % (0-9) Lymphocytes % 3 % (24-48) Atypical Lymphocytes % (Manual) 1 % (0-0) Monocytes % 11 % (0-10) Eosinophils % 1 % (0-5) Basophils % 1 % (0-3) Platelet Estimate Increased (ADEQUATE) Giant Platelets Few Anisocytosis Slight Ovalocytes Few Schistocytes Few Sodium Level 130 mmol/L (136-145) 132 mmol/L (136-145) Potassium Level 4.6 mmol/L (3.5-5.1) 4.0 mmol/L (3.5-5.1) Chloride Level 94 mmol/L (98-107) 97 mmol/L (98-107) Carbon Dioxide Level 26 mmol/L (21-32) 29 mmol/L (21-32) Anion Gap 10 (6-14) 6 (6-14) Blood Urea Nitrogen 17 mg/dL (8-26) 12 mg/dL (8-26) Creatinine 1.0 mg/dL (0.7-1.3) 0.8 mg/dL (0.7-1.3) Estimated GFR (Cockcroft-Gault) 70.5 91.2 BUN/Creatinine Ratio 17 (6-20) Glucose Level 117 mg/dL (70-99) 107 mg/dL (70-99) Calcium Level 9.1 mg/dL (8.5-10.1) 8.5 mg/dL (8.5-10.1) Total Bilirubin 0.4 mg/dL (0.2-1.0) Aspartate Amino Transf (AST/SGOT) 27 U/L (15-37) Alanine Aminotransferase (ALT/SGPT) 32 U/L (16-63) Alkaline Phosphatase 70 U/L (46-116) Total Protein 7.0 g/dL (6.4-8.2) Albumin 3.9 g/dL (3.4-5.0) Albumin/Globulin Ratio 1.3 (1.0-1.7) Salicylates Level < 2.8 mg/dL (2.8-20.0) Salicylate Last Dose Date Unk Salicylate Last Dose Time Unk Acetaminophen Level < 10 mcg/ml (10-30) Acetaminophen Last Dose Date Unk Acetaminophen Last Dose Time Unk Ethyl Alcohol Level < 10 mg/dL (0-10) Urine Collection Type Unknown Urine Color Yellow Urine Clarity Clear Urine pH 6.0 Urine Specific Victor 1.020 Urine Protein Negative mg/dL (NEG-TRACE) Urine Glucose (UA) Negative mg/dL (NEG) Urine Ketones (Stick) Negative mg/dL (NEG) Urine Blood Small (NEG) Urine Nitrite Negative (NEG) Urine Bilirubin Negative (NEG) Urine Urobilinogen Dipstick 0.2 mg/dL (0.2 mg/dL) Urine Leukocyte Esterase Negative (NEG) Urine RBC 6-10 /HPF (0-2) Urine WBC 0 /HPF (0-4) Urine Bacteria 0 /HPF (0-FEW) Urine Mucus Slight /LPF Urine Opiates Screen Neg (NEG) Urine Methadone Screen Neg (NEG) Urine Barbiturates Neg (NEG) Urine Phencyclidine Screen Neg (NEG) Urine Amphetamine/Methamphetamine Neg (NEG) Urine Benzodiazepines Screen Neg (NEG) Urine Cocaine Screen Neg (NEG) Urine Cannabinoids Screen Neg (NEG) Urine Ethyl Alcohol Neg (NEG) Magnesium Level 2.1 mg/dL (1.8-2.4) Laboratory Tests Test 03/27/17 05:00 White Blood Count 14.0 x10^3/uL (4.0-11.0) Red Blood Count 4.05 x10^6/uL (4.30-5.70) Hemoglobin 12.0 g/dL (13.0-17.5) Hematocrit 35.5 % (39.0-53.0) Mean Corpuscular Volume 88 fL (79-100) Mean Corpuscular Hemoglobin 30 pg (25-35) Mean Corpuscular Hemoglobin Concent 34 g/dL (31-37) Red Cell Distribution Width 16.1 % (11.5-14.5) Platelet Count 632 x10^3/uL (140-400) Neutrophils (%) (Auto) 68 % (31-73) Lymphocytes (%) (Auto) 14 % (24-48) Monocytes (%) (Auto) 14 % (0-9) Eosinophils (%) (Auto) 3 % (0-3) Basophils (%) (Auto) 1 % (0-3) Neutrophils # (Auto) 9.6 x10^3uL (1.8-7.7) Lymphocytes # (Auto) 2.0 x10^3/uL (1.0-4.8) Monocytes # (Auto) 2.0 x10^3/uL (0.0-1.1) Eosinophils # (Auto) 0.4 x10^3/uL (0.0-0.7) Basophils # (Auto) 0.1 x10^3/uL (0.0-0.2) Magnesium Level 2.1 mg/dL (1.8-2.4) Microbiology 03/25/17 Blood Culture - Preliminary, Resulted NO GROWTH AFTER 1 DAY Medications Current Medications Sodium Chloride 1,000 ml @ 1,000 mls/hr 1X ONCE IV Last administered on 17:28; Start 03/25/17 at 17:30; Stop 03/25/17 at 18:29; Status DC Acetaminophen (Tylenol) 650 mg PRN Q4HRS PRN PO PAIN; Start 03/26/17 at 09:30 Bisacodyl (Dulcolax Supp) 10 mg PRN DAILY PRN RC CONSTIPATION; Start 03/26/17 at 09:30 Lisinopril (Prinivil) 10 mg DAILY PO Last administered on 03/26/17 09:47; Start 03/26/17 at 10:00 Lorazepam (Ativan) 0.5 mg PRN Q6HRS PRN PO AGITATION Last administered on 23:18; Start 03/26/17 at 09:30 Metoprolol Tartrate (Lopressor) 50 mg DAILY PO Last administered on 03/26/17 09 :48; Start 03/26/17 at 10:00 Quetiapine Fumarate (SEROquel) 12.5 mg BID PO Last administered on 03/26/17 20: 42; Start 03/26/17 at 10:00 Sennosides (Senna) 8.6 mg DAILY PO Last administered on 03/26/17 09:43; Start 03/26/17 at 10:00 Simvastatin (Zocor) 10 mg HS PO Last administered on 03/26/17 20:42; Start 03/26 at 21:00 Non-Formulary Medication 5 mg HS PO ; Start 03/26/17 at 21:00; Status UNV Multivitamins (Thera M Plus) 1 tab DAILY PO Last administered on 03/26/17 09:43 ; Start 03/26/17 at 10:00 Quetiapine Fumarate (SEROquel XR) 50 mg HS PO Last administered on 03/26/17 20: 42; Start 03/26/17 at 21:00 Chlordiazepoxide (Librium) 25 mg PRN Q6HRS PRN PO ANXIETY / AGITATION Last administered on 03/26/17 20:42; Start 03/26/17 at 09:30 Folic Acid (Folic Acid) 1 mg DAILY PO Last administered on 03/26/17 14:16; Start 03/26/17 at 13:00 Thiamine Mononitrate (Vitamin B-1) 100 mg DAILY PO Last administered on 14:16; Start 03/26/17 at 13:00 Aspirin (Ecotrin) 81 mg DAILYWBKFT PO Last administered on 03/26/17 14:16; Start 03/26/17 at 13:00 Lorazepam (Ativan) 2 mg PRN Q4HRS PRN IV ANXIETY / AGITATION Last administered on 03/27/17 00:29; Start 03/27/17 at 00:00 Haloperidol Lactate (Haldol) 5 mg PRN Q6HRS PRN IVP AGITATION; Start 03/27/17 at 00:00 Active Scripts Active Reported Tylenol (Acetaminophen) 325 Mg Tablet 2 Tab PO PRN Q4HRS PRN Simvastatin 10 Mg Tablet 10 Mg PO HS Seroquel (Quetiapine Fumarate) 25 Mg Tablet 0.5 Tab PO BID Senna (Sennosides) 8.6 Mg Tablet 8.6 Mg PO DAILY Seroquel (Quetiapine Fumarate) 50 Mg Tablet 50 Mg PO HS Multivitamins (Multivitamin) 1 Each Tablet 1 Each PO DAILY Metoprolol Tartrate 50 Mg Tablet 50 Mg PO DAILY Melatonin 3 Mg Tablet 5 Mg PO HS Lorazepam 0.5 Mg Tablet 0.5 Mg PO PRN Q6HRS PRN Lisinopril 10 Mg Tablet 10 Mg PO DAILY Dulcolax (Bisacodyl) 10 Mg Supp.rect 10 Mg RC PRN DAILY PRN Vitals/I & O Vital Sign - Last 24 Hours 03/26/17 03/26/17 03/26/17 03/26/17 15:16 19:00 20:00 23:00 Temp 99.5 98.0 96.0 99.5 98.0 96.0 Pulse 74 93 90 Resp 16 18 B/P (MAP) 143/82 (102) 127/85 (99) 128/85 (99) Pulse Ox 97 99 97 O2 Delivery Room Air Room Air Room Air Room Air 03/27/17 03/27/17 03/27/17 03:00 07:04 10:02 Temp 97.0 98.7 98.7 97.0 98.7 98.7 Pulse 74 64 61 Resp 18 13 15 B/P (MAP) 125/92 (103) 114/66 (82) 138/81 (100) Pulse Ox 98 O2 Delivery Room Air Room Air Room Air O2 Flow Rate 98.0 95.0 95.0 Intake and Output 03/26/17 03/26/17 03/27/17 15:00 23:00 07:00 Intake Total 120 ml 300 ml 50 ml Output Total 150 ml Balance 120 ml 300 ml -100 ml GEOVANNI MCNAMARA MD March 27, 2017 11:09
[2017-03-27 18:08] VITALS: BP 131/70
[2017-03-27] MEDS: QUEtiapine 50 MG TAB.ER.24H. PO SCH (21:00)
[2017-03-27] MEDS: SIMVASTATIN 10 MG TABLET PO SCH (21:00)
[2017-03-27 22:55] VITALS: BP 120/71
[2017-03-28 02:59] VITALS: BP 121/61
[2017-03-28 09:31] VITALS: BP 119/73
[2017-03-28] MEDS: FOLIC ACID 1 MG TABLET. PO SCH (10:50)
[2017-03-28] MEDS: THIAMINE 100 MG TABLET. PO SCH (10:50)
[2017-03-28] MEDS: METOPROLOL TART IMMED RELEASE 50 MG TABLET. PO SCH (10:51)
[2017-03-28] MEDS: LISINOPRIL 10 MG TABLET PO SCH (10:51)
[2017-03-28] MEDS: MULTIVITAMIN with MINERAL TABLET. PO SCH (10:51)
[2017-03-28] MEDS: SENNOSIDES 8.6 MG TABLET PO SCH (10:51)
[2017-03-28] MEDS: QUEtiapine 25 MG TABLET. PO SCH ×2 (10:52→22:08)
[2017-03-28] MEDS: ASPIRIN ENTERIC COATED 81 MG TABLET.DR. PO SCH (10:52)
--- NOTE | 2017-03-28 13:43 | PDOC ---
PROGRESS NOTES Chief Complaint Chief Complaint 1. Hyponatremia, mild 2. Dementia, hx TBI per documentation 3. Leukocytosis, thrombocytosis, anemia - no signs of infection 4. ETOH drinker, heavy 5. Hx CAD, stab;e 6. Dementia per documentation 7. [place] resident ([facility]) 8. DNR 9. DEPRESSION, NON SUICIDAL 10. ENCEPHALOPATHY History of Present Illness History of Present Illness Same mentation Pleasantly confused today At least not aggressive today - was aggressive 2 days ago Sitter at bedside MOurning the loss of his - WBC better 12 today from 20s - no source of infcn LIves in [facility] - unsure if [facility] can accept if this behavior continues Seen by Clinton on wednesday before the agitation - no change in dc disposition I ave consulted SW- [facility] psych screen? Can [facility] take back with this behavior? PLAn: cont current haldol and ativan dose COnt sitter Lise psych screen might be in order TRial of SSRI. On seroquel already - anti pyschotic Vitals Vitals Vital Signs Date Time Temp Pulse Resp B/P (MAP) Pulse Ox O2 Delivery O2 Flow Rate FiO2 03/28/17 10:51 79 119/73 03/28/17 09:31 16 96 Room Air 03/27/17 10:02 98.7 95.0 98.7 Physical Exam General: Alert, Cooperative, No acute distress Abdomen: Normal bowel sounds, Soft, No tenderness, No hepatosplenomegaly, No masses Extremities: No clubbing, No cyanosis, No edema, Normal pulses, No tenderness/ swelling Skin: No rashes, No breakdown, No significant lesion Review of Systems Review of Systems unable - confused Assessment and Plan Assessmemt and Plan Problems Medical Problems: (1) Leukocytosis Status: Acute Problems: Comment Review of Relevant I have reviewed the following items fernando (where applicable) has been applied. Labs Laboratory Tests Test 03/27/17 05:00 White Blood Count 14.0 x10^3/uL (4.0-11.0) Red Blood Count 4.05 x10^6/uL (4.30-5.70) Hemoglobin 12.0 g/dL (13.0-17.5) Hematocrit 35.5 % (39.0-53.0) Mean Corpuscular Volume 88 fL (79-100) Mean Corpuscular Hemoglobin 30 pg (25-35) Mean Corpuscular Hemoglobin Concent 34 g/dL (31-37) Red Cell Distribution Width 16.1 % (11.5-14.5) Platelet Count 632 x10^3/uL (140-400) Neutrophils (%) (Auto) 68 % (31-73) Lymphocytes (%) (Auto) 14 % (24-48) Monocytes (%) (Auto) 14 % (0-9) Eosinophils (%) (Auto) 3 % (0-3) Basophils (%) (Auto) 1 % (0-3) Neutrophils # (Auto) 9.6 x10^3uL (1.8-7.7) Lymphocytes # (Auto) 2.0 x10^3/uL (1.0-4.8) Monocytes # (Auto) 2.0 x10^3/uL (0.0-1.1) Eosinophils # (Auto) 0.4 x10^3/uL (0.0-0.7) Basophils # (Auto) 0.1 x10^3/uL (0.0-0.2) Magnesium Level 2.1 mg/dL (1.8-2.4) Microbiology 03/25/17 Blood Culture - Preliminary, Resulted NO GROWTH AFTER 2 DAYS Medications Current Medications Sodium Chloride 1,000 ml @ 1,000 mls/hr 1X ONCE IV Last administered on 17:28; Start 03/25/17 at 17:30; Stop 03/25/17 at 18:29; Status DC Acetaminophen (Tylenol) 650 mg PRN Q4HRS PRN PO PAIN; Start 03/26/17 at 09:30 Bisacodyl (Dulcolax Supp) 10 mg PRN DAILY PRN RC CONSTIPATION; Start 03/26/17 at 09:30 Lisinopril (Prinivil) 10 mg DAILY PO Last administered on 03/28/17 10:51; Start 03/26/17 at 10:00 Lorazepam (Ativan) 0.5 mg PRN Q6HRS PRN PO AGITATION Last administered on 23:18; Start 03/26/17 at 09:30 Metoprolol Tartrate (Lopressor) 50 mg DAILY PO Last administered on 03/28/17 10 :51; Start 03/26/17 at 10:00 Quetiapine Fumarate (SEROquel) 12.5 mg BID PO Last administered on 03/28/17 10: 52; Start 03/26/17 at 10:00 Sennosides (Senna) 8.6 mg DAILY PO Last administered on 03/28/17 10:51; Start 03/26/17 at 10:00 Simvastatin (Zocor) 10 mg HS PO Last administered on 03/27/17 21:00; Start 03/26 at 21:00 Non-Formulary Medication 5 mg HS PO ; Start 03/26/17 at 21:00; Status UNV Multivitamins (Thera M Plus) 1 tab DAILY PO Last administered on 03/28/17 10:51 ; Start 03/26/17 at 10:00 Quetiapine Fumarate (SEROquel XR) 50 mg HS PO Last administered on 03/27/17 21: 00; Start 03/26/17 at 21:00 Chlordiazepoxide (Librium) 25 mg PRN Q6HRS PRN PO ANXIETY / AGITATION Last administered on 03/26/17 20:42; Start 03/26/17 at 09:30 Folic Acid (Folic Acid) 1 mg DAILY PO Last administered on 03/28/17 10:50; Start 03/26/17 at 13:00 Thiamine Mononitrate (Vitamin B-1) 100 mg DAILY PO Last administered on 10:50; Start 03/26/17 at 13:00 Aspirin (Ecotrin) 81 mg DAILYWBKFT PO Last administered on 03/28/17 10:52; Start 03/26/17 at 13:00 Lorazepam (Ativan) 2 mg PRN Q4HRS PRN IV ANXIETY / AGITATION Last administered on 03/27/17 00:29; Start 03/27/17 at 00:00; Stop 03/27/17 at 11:07; Status DC Haloperidol Lactate (Haldol) 5 mg PRN Q6HRS PRN IVP AGITATION; Start 03/27/17 at 00:00; Stop 03/27/17 at 11:07; Status DC Haloperidol Lactate (Haldol) 2.5 mg PRN Q6HRS PRN IVP AGITATION; Start 03/27/17 at 11:15 Lorazepam (Ativan) 1 mg PRN Q4HRS PRN IV ANXIETY / AGITATION; Start 03/27/17 at 11:15 Active Scripts Active Reported Tylenol (Acetaminophen) 325 Mg Tablet 2 Tab PO PRN Q4HRS PRN Simvastatin 10 Mg Tablet 10 Mg PO HS Seroquel (Quetiapine Fumarate) 25 Mg Tablet 0.5 Tab PO BID Senna (Sennosides) 8.6 Mg Tablet 8.6 Mg PO DAILY Seroquel (Quetiapine Fumarate) 50 Mg Tablet 50 Mg PO HS Multivitamins (Multivitamin) 1 Each Tablet 1 Each PO DAILY Metoprolol Tartrate 50 Mg Tablet 50 Mg PO DAILY Melatonin 3 Mg Tablet 5 Mg PO HS Lorazepam 0.5 Mg Tablet 0.5 Mg PO PRN Q6HRS PRN Lisinopril 10 Mg Tablet 10 Mg PO DAILY Dulcolax (Bisacodyl) 10 Mg Supp.rect 10 Mg RC PRN DAILY PRN Vitals/I & O Vital Sign - Last 24 Hours 03/27/17 03/27/17 03/27/17 03/28/17 18:08 20:00 22:55 02:59 Pulse 100 77 70 Resp 24 16 16 B/P (MAP) 131/70 (90) 120/71 (87) 121/61 (81) Pulse Ox 93 93 93 O2 Delivery Room Air Room Air Room Air Room Air 03/28/17 03/28/17 03/28/17 03/28/17 08:00 09:31 10:51 10:51 Pulse 79 79 79 Resp 16 B/P (MAP) 119/73 (88) 119/73 119/73 Pulse Ox 96 O2 Delivery Room Air Room Air Intake and Output 03/27/17 03/27/17 03/28/17 15:00 23:00 07:00 Intake Total 50 ml 100 ml Balance 50 ml 100 ml GEOVANNI MCNAMARA MD March 28, 2017 13:43
[2017-03-28] MEDS: CITALOPRAM 10 MG TABLET. PO SCH (14:00)
[2017-03-28 14:58] VITALS: BP 114/62
[2017-03-28 18:15] VITALS: BP 122/74
[2017-03-28] MEDS: SIMVASTATIN 10 MG TABLET PO SCH (22:08)
[2017-03-28] MEDS: QUEtiapine 50 MG TAB.ER.24H. PO SCH (22:08)
[2017-03-28 23:04] VITALS: BP 118/82
[2017-03-29 03:09] VITALS: BP 116/71
[2017-03-29 05:26] LABS: BASO # 0.1 x10^3/uL (0.0-0.2); BASO % 1 % (0-3); EOS % 6 % (0-3); HEMATOCRIT 35.6 % (39.0-53.0); HEMOGLOBIN 12.2 g/dL (13.0-17.5); LYMPH % 22 % (24-48); MEAN CORPUSCULAR HEMOGLOBIN 30 pg (25-35); MEAN CORPUSCULAR HGB CONC 34 g/dL (31-37); MEAN CORPUSCULAR VOLUME 88 fL (79-100); MONO % 15 % (0-9); NEUT % 56 % (31-73); PLATELET COUNT 782 x10^3/uL (140-400); RED BLOOD COUNT 4.03 x10^6/uL (4.30-5.70); RED CELL DISTRIBUTION WIDTH 16.4 % (11.5-14.5); WHITE BLOOD COUNT 9.4 x10^3/uL (4.0-11.0)
[2017-03-29 05:41] LABS: CALCIUM 8.7 mg/dL (8.5-10.1); CREATININE 1.3 mg/dL (0.7-1.3); GFR 52.1; POTASSIUM 4.6 mmol/L (3.5-5.1)
[2017-03-29 07:45] VITALS: BP 139/90
[2017-03-29] MEDS: FOLIC ACID 1 MG TABLET. PO SCH (08:13)
[2017-03-29] MEDS: ASPIRIN ENTERIC COATED 81 MG TABLET.DR. PO SCH (08:13)
[2017-03-29] MEDS: LISINOPRIL 10 MG TABLET PO SCH (08:13)
[2017-03-29] MEDS: MULTIVITAMIN with MINERAL TABLET. PO SCH (08:13)
[2017-03-29] MEDS: METOPROLOL TART IMMED RELEASE 50 MG TABLET. PO SCH (08:14)
[2017-03-29] MEDS: QUEtiapine 25 MG TABLET. PO SCH ×2 (08:15→20:38)
[2017-03-29] MEDS: SENNOSIDES 8.6 MG TABLET PO SCH (08:15)
[2017-03-29] MEDS: CITALOPRAM 10 MG TABLET. PO SCH (08:15)
[2017-03-29] MEDS: THIAMINE 100 MG TABLET. PO SCH (08:18)
[2017-03-29 11:00] VITALS: BP 119/70
--- NOTE | 2017-03-29 11:01 | PDOC ---
PROGRESS NOTES Chief Complaint Chief Complaint 1. Hyponatremia, mild 2. Dementia, hx TBI per documentation 3. Leukocytosis, thrombocytosis, anemia - no signs of infection 4. ETOH drinker, heavy 5. Hx CAD, stab;e 6. Dementia per documentation 7. [facility] resident ([facility]) 8. DNR 9. DEPRESSION, NON SUICIDAL 10. ENCEPHALOPATHY History of Present Illness History of Present Illness Denies suicidal ideation Pleasantly confused today Not aggressive today Sitter at bedside States that his has lost interest in him but "if you ask her she would disagree" We discussed care with MEDICAL LAB TECHNOLOGIST, nurse, and registered nurse hh case manager Vitals Vitals Vital Signs Date Time Temp Pulse Resp B/P (MAP) Pulse Ox O2 Delivery O2 Flow Rate FiO2 03/29/17 08:26 Room Air 03/29/17 08:14 94 139/90 03/29/17 07:45 98.0 18 96 98.0 03/29/17 03:09 95.0 Physical Exam General: Alert, Cooperative, No acute distress Heart: Regular rate, Normal S1, Normal S2 Lungs: Crackles (R side) Abdomen: Normal bowel sounds, Soft, No tenderness, No hepatosplenomegaly, No masses Extremities: No clubbing, No cyanosis, No edema, Normal pulses, No tenderness/ swelling Skin: No rashes, No breakdown, Other (healing L wrist injury site) Labs LABS Laboratory Tests Test 03/29/17 04:35 White Blood Count 9.4 x10^3/uL (4.0-11.0) Red Blood Count 4.03 x10^6/uL (4.30-5.70) Hemoglobin 12.2 g/dL (13.0-17.5) Hematocrit 35.6 % (39.0-53.0) Mean Corpuscular Volume 88 fL (79-100) Mean Corpuscular Hemoglobin 30 pg (25-35) Mean Corpuscular Hemoglobin Concent 34 g/dL (31-37) Red Cell Distribution Width 16.4 % (11.5-14.5) Platelet Count 782 x10^3/uL (140-400) Neutrophils (%) (Auto) 56 % (31-73) Lymphocytes (%) (Auto) 22 % (24-48) Monocytes (%) (Auto) 15 % (0-9) Eosinophils (%) (Auto) 6 % (0-3) Basophils (%) (Auto) 1 % (0-3) Neutrophils # (Auto) 5.3 x10^3uL (1.8-7.7) Lymphocytes # (Auto) 2.0 x10^3/uL (1.0-4.8) Monocytes # (Auto) 1.4 x10^3/uL (0.0-1.1) Eosinophils # (Auto) 0.6 x10^3/uL (0.0-0.7) Basophils # (Auto) 0.1 x10^3/uL (0.0-0.2) Sodium Level 136 mmol/L (136-145) Potassium Level 4.6 mmol/L (3.5-5.1) Chloride Level 100 mmol/L (98-107) Carbon Dioxide Level 27 mmol/L (21-32) Anion Gap 9 (6-14) Blood Urea Nitrogen 26 mg/dL (8-26) Creatinine 1.3 mg/dL (0.7-1.3) Estimated GFR (Cockcroft-Gault) 52.1 Glucose Level 96 mg/dL (70-99) Calcium Level 8.7 mg/dL (8.5-10.1) Review of Systems Review of Systems General: denies fatigue Resp: denies SOB Psych: denies SI Assessment and Plan Assessmemt and Plan Problems Medical Problems: (1) Leukocytosis Status: Acute 1. Hyponatremia, mild 2. ENCEPHALOPATHY 3. Dementia, hx TBI per documentation 4. DEPRESSION, NON SUICIDAL 5. Leukocytosis, thrombocytosis, anemia - no signs of infection 6. ETOH drinker, heavy 7. Hx CAD, stable 8. Dementia per documentation 9. [facility] resident ([facility]) 10. DNR Plan: 1. D/C to [facility] if accepting 2. Continue PT/OT at [facility] facility 3. Follow up with PCP [facility] 4. May need labs to recheck Na at [facility] facility 5. May need repeat chest x-ray if becomes SOB at [facility] facility Problems: Comment Review of Relevant I have reviewed the following items fernando (where applicable) has been applied. Labs Laboratory Tests Test 03/29/17 04:35 White Blood Count 9.4 x10^3/uL (4.0-11.0) Red Blood Count 4.03 x10^6/uL (4.30-5.70) Hemoglobin 12.2 g/dL (13.0-17.5) Hematocrit 35.6 % (39.0-53.0) Mean Corpuscular Volume 88 fL (79-100) Mean Corpuscular Hemoglobin 30 pg (25-35) Mean Corpuscular Hemoglobin Concent 34 g/dL (31-37) Red Cell Distribution Width 16.4 % (11.5-14.5) Platelet Count 782 x10^3/uL (140-400) Neutrophils (%) (Auto) 56 % (31-73) Lymphocytes (%) (Auto) 22 % (24-48) Monocytes (%) (Auto) 15 % (0-9) Eosinophils (%) (Auto) 6 % (0-3) Basophils (%) (Auto) 1 % (0-3) Neutrophils # (Auto) 5.3 x10^3uL (1.8-7.7) Lymphocytes # (Auto) 2.0 x10^3/uL (1.0-4.8) Monocytes # (Auto) 1.4 x10^3/uL (0.0-1.1) Eosinophils # (Auto) 0.6 x10^3/uL (0.0-0.7) Basophils # (Auto) 0.1 x10^3/uL (0.0-0.2) Sodium Level 136 mmol/L (136-145) Potassium Level 4.6 mmol/L (3.5-5.1) Chloride Level 100 mmol/L (98-107) Carbon Dioxide Level 27 mmol/L (21-32) Anion Gap 9 (6-14) Blood Urea Nitrogen 26 mg/dL (8-26) Creatinine 1.3 mg/dL (0.7-1.3) Estimated GFR (Cockcroft-Gault) 52.1 Glucose Level 96 mg/dL (70-99) Calcium Level 8.7 mg/dL (8.5-10.1) Laboratory Tests Test 03/29/17 04:35 White Blood Count 9.4 x10^3/uL (4.0-11.0) Red Blood Count 4.03 x10^6/uL (4.30-5.70) Hemoglobin 12.2 g/dL (13.0-17.5) Hematocrit 35.6 % (39.0-53.0) Mean Corpuscular Volume 88 fL (79-100) Mean Corpuscular Hemoglobin 30 pg (25-35) Mean Corpuscular Hemoglobin Concent 34 g/dL (31-37) Red Cell Distribution Width 16.4 % (11.5-14.5) Platelet Count 782 x10^3/uL (140-400) Neutrophils (%) (Auto) 56 % (31-73) Lymphocytes (%) (Auto) 22 % (24-48) Monocytes (%) (Auto) 15 % (0-9) Eosinophils (%) (Auto) 6 % (0-3) Basophils (%) (Auto) 1 % (0-3) Neutrophils # (Auto) 5.3 x10^3uL (1.8-7.7) Lymphocytes # (Auto) 2.0 x10^3/uL (1.0-4.8) Monocytes # (Auto) 1.4 x10^3/uL (0.0-1.1) Eosinophils # (Auto) 0.6 x10^3/uL (0.0-0.7) Basophils # (Auto) 0.1 x10^3/uL (0.0-0.2) Sodium Level 136 mmol/L (136-145) Potassium Level 4.6 mmol/L (3.5-5.1) Chloride Level 100 mmol/L (98-107) Carbon Dioxide Level 27 mmol/L (21-32) Anion Gap 9 (6-14) Blood Urea Nitrogen 26 mg/dL (8-26) Creatinine 1.3 mg/dL (0.7-1.3) Estimated GFR (Cockcroft-Gault) 52.1 Glucose Level 96 mg/dL (70-99) Calcium Level 8.7 mg/dL (8.5-10.1) Microbiology 03/25/17 Blood Culture - Preliminary, Resulted NO GROWTH AFTER 3 DAYS Medications Current Medications Sodium Chloride 1,000 ml @ 1,000 mls/hr 1X ONCE IV Last administered on t 17:28; Start 03/25/17 at 17:30; Stop 03/25/17 at 18:29; Status DC Acetaminophen (Tylenol) 650 mg PRN Q4HRS PRN PO PAIN; Start 03/26/17 at 09:30 Bisacodyl (Dulcolax Supp) 10 mg PRN DAILY PRN RC CONSTIPATION; Start 03/26/17 at 09:30 Lisinopril (Prinivil) 10 mg DAILY PO Last administered on 03/29/17 08:13; Start 03/26/17 at 10:00 Lorazepam (Ativan) 0.5 mg PRN Q6HRS PRN PO AGITATION Last administered on 23:18; Start 03/26/17 at 09:30 Metoprolol Tartrate (Lopressor) 50 mg DAILY PO Last administered on 03/29/17 08 :14; Start 03/26/17 at 10:00 Quetiapine Fumarate (SEROquel) 12.5 mg BID PO Last administered on 03/29/17 08: 15; Start 03/26/17 at 10:00 Sennosides (Senna) 8.6 mg DAILY PO Last administered on 03/29/17 08:15; Start 03/26/17 at 10:00 Simvastatin (Zocor) 10 mg HS PO Last administered on 03/28/17 22:08; Start 03/26 at 21:00 Non-Formulary Medication 5 mg HS PO ; Start 03/26/17 at 21:00; Status UNV Multivitamins (Thera M Plus) 1 tab DAILY PO Last administered on 03/29/17 08:13 ; Start 03/26/17 at 10:00 Quetiapine Fumarate (SEROquel XR) 50 mg HS PO Last administered on 03/28/17 22: 08; Start 03/26/17 at 21:00 Chlordiazepoxide (Librium) 25 mg PRN Q6HRS PRN PO ANXIETY / AGITATION Last administered on 03/26/17 20:42; Start 03/26/17 at 09:30 Folic Acid (Folic Acid) 1 mg DAILY PO Last administered on 03/29/17 08:13; Start 03/26/17 at 13:00 Thiamine Mononitrate (Vitamin B-1) 100 mg DAILY PO Last administered on 08:18; Start 03/26/17 at 13:00 Aspirin (Ecotrin) 81 mg DAILYWBKFT PO Last administered on 03/29/17 08:13; Start 03/26/17 at 13:00 Lorazepam (Ativan) 2 mg PRN Q4HRS PRN IV ANXIETY / AGITATION Last administered on 03/27/17 00:29; Start 03/27/17 at 00:00; Stop 03/27/17 at 11:07; Status DC Haloperidol Lactate (Haldol) 5 mg PRN Q6HRS PRN IVP AGITATION; Start 03/27/17 at 00:00; Stop 03/27/17 at 11:07; Status DC Haloperidol Lactate (Haldol) 2.5 mg PRN Q6HRS PRN IVP AGITATION; Start 03/27/17 at 11:15 Lorazepam (Ativan) 1 mg PRN Q4HRS PRN IV ANXIETY / AGITATION; Start 03/27/17 at 11:15 Citalopram Hydrobromide (CeleXA) 10 mg DAILY PO Last administered on 03/29/17 08:15; Start 03/28/17 at 14:00 Active Scripts Active Reported Tylenol (Acetaminophen) 325 Mg Tablet 2 Tab PO PRN Q4HRS PRN Simvastatin 10 Mg Tablet 10 Mg PO HS Seroquel (Quetiapine Fumarate) 25 Mg Tablet 0.5 Tab PO BID Senna (Sennosides) 8.6 Mg Tablet 8.6 Mg PO DAILY Seroquel (Quetiapine Fumarate) 50 Mg Tablet 50 Mg PO HS Multivitamins (Multivitamin) 1 Each Tablet 1 Each PO DAILY Metoprolol Tartrate 50 Mg Tablet 50 Mg PO DAILY Melatonin 3 Mg Tablet 5 Mg PO HS Lorazepam 0.5 Mg Tablet 0.5 Mg PO PRN Q6HRS PRN Lisinopril 10 Mg Tablet 10 Mg PO DAILY Dulcolax (Bisacodyl) 10 Mg Supp.rect 10 Mg RC PRN DAILY PRN Vitals/I & O Vital Sign - Last 24 Hours 03/28/17 03/28/17 03/28/17 03/28/17 14:58 18:15 20:09 23:04 Temp 98.0 97.8 98.0 97.8 Pulse 60 80 71 Resp 20 18 B/P (MAP) 114/62 (79) 122/74 (90) 118/82 (94) Pulse Ox 95 94 95 O2 Delivery Room Air Room Air Room Air Room Air 03/29/17 03/29/17 03/29/17 03/29/17 03:09 07:45 08:13 08:14 Temp 98.1 98.0 98.1 98.0 Pulse 79 94 94 94 Resp 16 18 B/P (MAP) 116/71 (86) 139/90 (106) 139/90 139/90 Pulse Ox 95 96 O2 Delivery Room Air Room Air O2 Flow Rate 95.0 03/29/17 08:26 O2 Delivery Room Air Intake and Output 03/28/17 03/28/17 03/29/17 15:00 23:00 07:00 Intake Total 570 ml Output Total 200 ml Balance 570 ml -200 ml MICHELLE CASON III DO March 29, 2017 11:01
[2017-03-29] MEDS: PIPERACILLIN/TAZOBACTAM 3.375 GM in IV NORMAL SALINE 50ML 50 ML IV SCH ×2 (15:04→18:00)
[2017-03-29 15:05] VITALS: BP 127/70
[2017-03-29 19:10] VITALS: BP 132/78
[2017-03-29] MEDS: QUEtiapine 50 MG TAB.ER.24H. PO SCH (20:38)
[2017-03-29] MEDS: SIMVASTATIN 10 MG TABLET PO SCH (20:38)
[2017-03-29 22:17] VITALS: BP 116/80
[2017-03-30 02:15] VITALS: BP 124/76
[2017-03-30] MEDS: PIPERACILLIN/TAZOBACTAM 3.375 GM in IV NORMAL SALINE 50ML 50 ML IV SCH ×3 (06:14)
[2017-03-30 07:14] VITALS: BP 137/67
[2017-03-30] MEDS: MULTIVITAMIN with MINERAL TABLET. PO SCH (08:36)
[2017-03-30] MEDS: CITALOPRAM 10 MG TABLET. PO SCH (08:36)
[2017-03-30] MEDS: SENNOSIDES 8.6 MG TABLET PO SCH (08:36)
[2017-03-30] MEDS: METOPROLOL TART IMMED RELEASE 50 MG TABLET. PO SCH (08:36)
[2017-03-30] MEDS: LISINOPRIL 10 MG TABLET PO SCH (08:37)
[2017-03-30] MEDS: FOLIC ACID 1 MG TABLET. PO SCH (08:37)
[2017-03-30] MEDS: ASPIRIN ENTERIC COATED 81 MG TABLET.DR. PO SCH (08:37)
[2017-03-30] MEDS: QUEtiapine 25 MG TABLET. PO SCH ×2 (08:37→21:36)
[2017-03-30] MEDS: THIAMINE 100 MG TABLET. PO SCH (08:37)
--- NOTE | 2017-03-30 08:54 | PDOC ---
Infectious Disease Note ROS ROS GEN: Denies fevers, chills, sweats HEENT: Denies blurred vision, sore throat CV: Denies chest pain RESP: Denies shortness of air, cough GI: Denies n/v/d NEURO: Denies confusion, dizziness MSK: Denies weakness, joint pain/swelling Vital Sign Vital Signs Vital Signs Date Time Temp Pulse Resp B/P (MAP) Pulse Ox O2 Delivery O2 Flow Rate FiO2 03/30/17 07:14 97.8 77 18 137/67 (90) 97 Room Air 97.8 Physical Exam PHYSICAL EXAM GENERAL: NAD, Alert HEENT: PERRL, OC/OP NECK: Supple, no JVD, no LN LUNGS: Clear HEART: S1S2, no gallop, no murmur ABD: Soft, NT, no organomegaly, no rebound EXT: No edema, no cyanosis QUALITY MANAGEMENT COORDINATOR: Alert, oriented x 3, no focal neurologic deficit SKIN: No rash IV: ok Objective Assessment GPR - bacteremia 03/25. 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 Fractures in thoracic area as well Leukocytosis - ? reactive as improving prior to abx Plan Plan of Care Tetanus immunization ? uncertain when last one was Neurosurgery eval D/c Zosyn F/u labs and response Thank you # [id number] TIM CARRERA MD March 30, 2017 08:54
--- NOTE | 2017-03-30 09:27 | PDOC ---
Provider Note Provider Note Patient seen and examined c/o mild left sided low back pain normal strength and sensation in LE able to ambulate with walker imaging shows L1 compression fracture Lumbar CT ordered He has essentially no pain. I do not feel a brace is necessary Consult Dr. Sellers Full consult to follow ALMAS HERNANDEZ MD March 30, 2017 09:27
[2017-03-30] MEDS ORDERED: TETANUS AND DIPHTHERIA TOX/PF 0.5 ML DISP.SYRIN. VAX IM ONE (09:30)
[2017-03-30 10:24] VITALS: BP 125/68
--- NOTE | 2017-03-30 11:12 | RAD ---
Indication: Compression fracture of L1. Axial imaging through the lumbar spine was performed without contrast. Sagittal and coronal reformations were also performed. Curvature and alignment of the lumbar spine is normal. There is a significant fracture deformity involving the L1 vertebral body which appears acute. The vertebral body is near vertebral plana. There is moderate retropulsion present, narrowing the canal to approximately 6 to 7 mm AP dimension. The fractures do involve the entire vertebral body. The posterior elements do not appear to be involved. Remaining lumbar vertebrae show normal stature. No other fracture is seen. There is broad-based annular bulging and ligament thickening at all levels compatible with degenerative change. Impression: Two column fracture involving the L1 vertebral body, which is near vertebral plana. Retropulsion is present producing moderate central canal stenosis. No other significant abnormality is detected. PQRS Compliance Statement: One or more of the following individualized dose reduction techniques were utilized for this examination: 1. Automated exposure control 2. Adjustment of the mA and/or kV according to patient size 3. Use of iterative reconstruction technique
--- NOTE | 2017-03-30 11:18 | PDOC ---
PROGRESS NOTES Chief Complaint Chief Complaint 1. Hyponatremia, mild 2. Dementia, hx TBI per documentation 3. Leukocytosis, thrombocytosis, anemia - no signs of infection 4. ETOH drinker, heavy 5. Hx CAD, stab;e 6. Dementia per documentation 7. [facility] resident ([facility]) 8. DNR 9. Depression, non-suicidal 10. Encephalopathy History of Present Illness History of Present Illness Denies suicidal ideation Not aggressive today Able to walk using walker and assistance Discussed care with nurse Vitals Vitals Vital Signs Date Time Temp Pulse Resp B/P (MAP) Pulse Ox O2 Delivery O2 Flow Rate FiO2 03/30/17 10:24 97.8 58 18 125/68 (87) 96 Room Air 97.8 Physical Exam General: Alert, Cooperative, No acute distress Heart: Regular rate, Normal S1, Normal S2 Lungs: Clear Abdomen: Normal bowel sounds, Soft, No tenderness, No hepatosplenomegaly, No masses Extremities: No clubbing, No cyanosis, No edema, Normal pulses, No tenderness/ swelling Skin: No rashes, No breakdown, Other (healing L wrist injury) Review of Systems Review of Systems General: denies pain anywhere, denies fever, chills GI: denies N/V Psych: denies SI Assessment and Plan Assessmemt and Plan Problems Medical Problems: (1) Leukocytosis Status: Acute 1. Hyponatremia, mild 2. Dementia, hx TBI per documentation 3. Leukocytosis, thrombocytosis, anemia - no signs of infection 4. ETOH drinker, heavy 5. Hx CAD, stab;e 6. Dementia per documentation 7. [facility] resident ([facility]) 8. DNR 9. Depression, non-suicidal 10. Encephalopathy Plan: 1. ID is following after positive blood cx - likely contaminate - D/C'd Zosyn 2. NS consulted - fracture at T12, denies pain 3. Hope to discharge when stable 4. Repeat labs in AM 5. Continue PT/OT 6. Subspecialist input appreciated Problems: Comment Review of Relevant I have reviewed the following items fernando (where applicable) has been applied. Labs Laboratory Tests Test 03/29/17 04:35 White Blood Count 9.4 x10^3/uL (4.0-11.0) Red Blood Count 4.03 x10^6/uL (4.30-5.70) Hemoglobin 12.2 g/dL (13.0-17.5) Hematocrit 35.6 % (39.0-53.0) Mean Corpuscular Volume 88 fL (79-100) Mean Corpuscular Hemoglobin 30 pg (25-35) Mean Corpuscular Hemoglobin Concent 34 g/dL (31-37) Red Cell Distribution Width 16.4 % (11.5-14.5) Platelet Count 782 x10^3/uL (140-400) Neutrophils (%) (Auto) 56 % (31-73) Lymphocytes (%) (Auto) 22 % (24-48) Monocytes (%) (Auto) 15 % (0-9) Eosinophils (%) (Auto) 6 % (0-3) Basophils (%) (Auto) 1 % (0-3) Neutrophils # (Auto) 5.3 x10^3uL (1.8-7.7) Lymphocytes # (Auto) 2.0 x10^3/uL (1.0-4.8) Monocytes # (Auto) 1.4 x10^3/uL (0.0-1.1) Eosinophils # (Auto) 0.6 x10^3/uL (0.0-0.7) Basophils # (Auto) 0.1 x10^3/uL (0.0-0.2) Sodium Level 136 mmol/L (136-145) Potassium Level 4.6 mmol/L (3.5-5.1) Chloride Level 100 mmol/L (98-107) Carbon Dioxide Level 27 mmol/L (21-32) Anion Gap 9 (6-14) Blood Urea Nitrogen 26 mg/dL (8-26) Creatinine 1.3 mg/dL (0.7-1.3) Estimated GFR (Cockcroft-Gault) 52.1 Glucose Level 96 mg/dL (70-99) Calcium Level 8.7 mg/dL (8.5-10.1) Microbiology 03/25/17 Blood Culture - Final, Complete 03/25/17 Blood Culture Result 1 (MYRON) - Final, Complete Medications Current Medications Sodium Chloride 1,000 ml @ 1,000 mls/hr 1X ONCE IV Last administered on t 17:28; Start 03/25/17 at 17:30; Stop 03/25/17 at 18:29; Status DC Acetaminophen (Tylenol) 650 mg PRN Q4HRS PRN PO PAIN; Start 03/26/17 at 09:30 Bisacodyl (Dulcolax Supp) 10 mg PRN DAILY PRN RC CONSTIPATION; Start 03/26/17 at 09:30 Lisinopril (Prinivil) 10 mg DAILY PO Last administered on 03/30/17 08:37; Start 03/26/17 at 10:00 Lorazepam (Ativan) 0.5 mg PRN Q6HRS PRN PO AGITATION Last administered on 23:18; Start 03/26/17 at 09:30 Metoprolol Tartrate (Lopressor) 50 mg DAILY PO Last administered on 03/30/17 08 :36; Start 03/26/17 at 10:00 Quetiapine Fumarate (SEROquel) 12.5 mg BID PO Last administered on 03/30/17 08: 37; Start 03/26/17 at 10:00 Sennosides (Senna) 8.6 mg DAILY PO Last administered on 03/30/17 08:36; Start 03/26/17 at 10:00 Simvastatin (Zocor) 10 mg HS PO Last administered on 03/29/17 20:38; Start 03/26 at 21:00 Non-Formulary Medication 5 mg HS PO ; Start 03/26/17 at 21:00; Status UNV Multivitamins (Thera M Plus) 1 tab DAILY PO Last administered on 03/30/17 08:36 ; Start 03/26/17 at 10:00 Quetiapine Fumarate (SEROquel XR) 50 mg HS PO Last administered on 03/29/17 20: 38; Start 03/26/17 at 21:00 Chlordiazepoxide (Librium) 25 mg PRN Q6HRS PRN PO ANXIETY / AGITATION Last administered on 03/26/17 20:42; Start 03/26/17 at 09:30 Folic Acid (Folic Acid) 1 mg DAILY PO Last administered on 03/30/17 08:37; Start 03/26/17 at 13:00 Thiamine Mononitrate (Vitamin B-1) 100 mg DAILY PO Last administered on 08:37; Start 03/26/17 at 13:00 Aspirin (Ecotrin) 81 mg DAILYWBKFT PO Last administered on 03/30/17 08:37; Start 03/26/17 at 13:00 Lorazepam (Ativan) 2 mg PRN Q4HRS PRN IV ANXIETY / AGITATION Last administered on 03/27/17 00:29; Start 03/27/17 at 00:00; Stop 03/27/17 at 11:07; Status DC Haloperidol Lactate (Haldol) 5 mg PRN Q6HRS PRN IVP AGITATION; Start 03/27/17 at 00:00; Stop 03/27/17 at 11:07; Status DC Haloperidol Lactate (Haldol) 2.5 mg PRN Q6HRS PRN IVP AGITATION; Start 03/27/17 at 11:15 Lorazepam (Ativan) 1 mg PRN Q4HRS PRN IV ANXIETY / AGITATION; Start 03/27/17 at 11:15 Citalopram Hydrobromide (CeleXA) 10 mg DAILY PO Last administered on 03/30/17 08:36; Start 03/28/17 at 14:00 Piperacillin Sod/ Tazobactam Sod 3.375 gm/Sodium Chloride 50 ml @ 100 mls/hr Q6HRS IV Last administered on 03/30/17 06:14; Start 03/29/17 at 14:00; Stop 03/30 at 08:46; Status DC Tetanus/ Diphtheria Toxoids (Tenivac Syringe) 0.5 ml ONCE ONCE VAX IM ; Start at 09:30; Stop 03/30/17 at 09:31; Status DC Active Scripts Active Reported Tylenol (Acetaminophen) 325 Mg Tablet 2 Tab PO PRN Q4HRS PRN Simvastatin 10 Mg Tablet 10 Mg PO HS Seroquel (Quetiapine Fumarate) 25 Mg Tablet 0.5 Tab PO BID Senna (Sennosides) 8.6 Mg Tablet 8.6 Mg PO DAILY Seroquel (Quetiapine Fumarate) 50 Mg Tablet 50 Mg PO HS Multivitamins (Multivitamin) 1 Each Tablet 1 Each PO DAILY Metoprolol Tartrate 50 Mg Tablet 50 Mg PO DAILY Melatonin 3 Mg Tablet 5 Mg PO HS Lorazepam 0.5 Mg Tablet 0.5 Mg PO PRN Q6HRS PRN Lisinopril 10 Mg Tablet 10 Mg PO DAILY Dulcolax (Bisacodyl) 10 Mg Supp.rect 10 Mg RC PRN DAILY PRN Vitals/I & O Vital Sign - Last 24 Hours 03/29/17 03/29/17 03/29/17 03/29/17 15:05 19:10 20:00 22:17 Temp 97.9 97.8 97.7 97.9 97.8 97.7 Pulse 64 74 79 Resp 18 20 18 B/P (MAP) 127/70 (89) 132/78 (96) 116/80 (92) Pulse Ox 97 95 94 O2 Delivery Room Air Room Air Room Air Room Air 03/30/17 03/30/17 03/30/17 03/30/17 02:15 07:14 08:00 08:36 Temp 97.7 97.8 97.7 97.8 Pulse 76 77 77 Resp 18 18 B/P (MAP) 124/76 (92) 137/67 (90) 137/67 Pulse Ox 94 97 O2 Delivery Room Air Room Air Room Air 03/30/17 03/30/17 08:37 10:24 Temp 97.8 97.8 Pulse 77 58 Resp 18 B/P (MAP) 137/67 125/68 (87) Pulse Ox 96 O2 Delivery Room Air Intake and Output 03/29/17 03/29/17 03/30/17 15:00 23:00 07:00 Intake Total 1020 ml 720 ml Balance 1020 ml 720 ml MICHELLE CASON III DO March 30, 2017 11:18
[2017-03-30 15:07] VITALS: BP 128/74
[2017-03-30 19:00] VITALS: BP 124/73
[2017-03-30] MEDS: SIMVASTATIN 10 MG TABLET PO SCH (21:35)
[2017-03-30] MEDS: QUEtiapine 50 MG TAB.ER.24H. PO SCH (21:35)
[2017-03-30 23:00] VITALS: BP 123/75
--- NOTE | 2017-03-31 01:47 | CONS ---
DATE OF CONSULTATION: 03/30/2017 LOCATION: The patient is in room 658. REQUESTING PHYSICIAN: Dr. Moore. REASON FOR CONSULTATION: Bacteremia. HISTORY OF PRESENT ILLNESS: The patient is a pleasant 86-year-old gentleman, somewhat of a poor historian, does have a history of dementia, who admits 2 weeks ago, he attempted suicide by cutting his left wrist with a knife. His has recently passed and he has been depressed. He was brought to [facility] approximately 03/25/2017 or so secondary to mental status change and depression. He has been afebrile since his arrival; however, on arrival, white blood cell count was 21.2 with 80% segs, platelets were 841. Urinalysis was clean. Blood cultures were obtained. Chest x-ray showed some mild streaky bibasilar atelectasis and/or scarring. CT scan of the chest was obtained also, showed minimal pleural effusion on the right, multiple compression fractures of T2, T3, L2 and L1, the compression fracture of L1 is severe with posterior protrusion of bony elements in the spinal canal, also air was seen there consistent with osteonecrosis. CT scan of the head was performed, showed no acute intracranial process. Yesterday's blood culture turned positive in 1 bottle out of 2 for gram-positive cj and hence, I was consulted. I instituted Zosyn not knowing his complete history. Currently, the patient is sitting on a chair. Denies any fever or chills or sweats. He has no headaches, no sinus issues, sore throat or cough. No chest pain. No dysuria, frequency or urgency. He states he did have problems with constipation, although it has not been a problem over the past week or so. Denies any falls or any other traumas, but again he did cut his left wrist with a knife 2 weeks ago. PAST MEDICAL HISTORY: Positive for depression, hyperlipidemia, heart disease, gastroesophageal reflux disease, TBI, thrombocytosis, questionable dementia. PAST SURGICAL HISTORY: Positive for skin biopsy. REVIEW OF SYSTEMS: As mentioned above. ALLERGIES: No known drug allergies. SOCIAL HISTORY: He has 2 shots of whiskey daily, quit smoking in the . FAMILY HISTORY: Noncontributory. CURRENT MEDICATIONS: Include Zosyn, Tylenol, Ecotrin, Celexa, folic acid, Seroquel, Zocor. PHYSICAL EXAMINATION: VITAL SIGNS: He is afebrile, temperature is 97.8, pulse 77, respirations 18, blood pressure 137/67, pulse 97. CONSTITUTIONAL: He is sitting on a chair. He is in no acute distress. HEENT: Pupils are equal and reactive. He has normal conjunctivae. Oral cavity, oropharynx was clear. NECK: Supple, no JVD. HEART: S1, S2. LUNGS: Clear to auscultation bilaterally. ABDOMEN: Soft, nontender, nondistended. EXTREMITIES: Without clubbing, cyanosis or gross edema. SKIN: Without signs of rash. He has healing scabs on his left wrist. NEUROLOGIC: Nonfocal, moved all extremities. PSYCHIATRIC: Affect was somewhat flat. LABORATORY DATA: White count yesterday 9.4, hemoglobin 12.2, platelets of 72, neutrophils ____ 56, lymphs 22. Creatinine 1.3, glucose was 96. Urinalysis was negative. Toxicology screen was negative. RADIOLOGY: Reviewed in history of present illness. IMPRESSION: 1. Gram-positive bacteremia from 03/25/2017, one bottle out of two. Discussed with microbiology. This is a bacillus species, is most likely contamination. 2. Attempted suicide approximately 2 weeks ago with a left wrist cut that is healing using a knife. 3. L1 compression fracture with osteonecrosis, fractures in the thoracic area as well. 4. Leukocytosis, questionable reactive as he is improving prior to the institution of antibiotics. RECOMMENDATIONS: 1. We will get a tetanus immunization because it is uncertain when his last one was. 2. Obtain Neurosurgery evaluation based on the CT scan. 3. We will discontinue the Zosyn. 4. Follow up labs in response. Thank you for allowing me to participate in this patient's care. If you have any questions, please do not hesitate to contact me. TIM CARRERA MD DR: MADDIE/bekah JOB#: [id number] / [id number]
--- NOTE | 2017-03-31 02:16 | CONS ---
DATE OF CONSULTATION: 03/30/2017 ATTENDING PHYSICIAN: Dr. Parham. The patient was seen at the request of Dr. Nolasco for rehab evaluation. HISTORY OF PRESENT ILLNESS: This is an 86-year-old male. The patient was admitted on 03/25/2017 to the Emergency Room with depression, suicidal ideation. He lives in an independent living facility in [facility], history of dementia, dyslipidemia, hypertension, coronary artery disease, gastroesophageal reflux disease, traumatic brain injury. He cut his left wrist about 2 weeks ago because his is not doing as well and he lost interest. He admits some constipation. He was noted with healing abrasion or laceration, left wrist. He never had issues with depression in the past. He does drink 2 shots of whiskey every day. The patient is not known allergic to any medication. Since admission, he was noted with leukocytosis. Chest x-ray revealed patchy infiltrates in the left lower lobe. No pneumothorax or bony abnormalities were noted. 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 In the past, he was advised to take baby aspirin daily. The patient was also noted with positive blood cultures. The patient had CT scan of the chest, which revealed calcified atheromatous disease of the coronary arteries, mild cardiomegaly, minimal pleural effusion on the right side, right lung base, atelectasis, multiple compression fractures of T2, T3, L2 and L1 and compression fracture of L1 is severe with posterior protrusion of bony elements into the spinal canal, significant narrowing, AP dimension of the spinal canal down to area seen within the vertebral body consistent with osteonecrosis. CT scan of the brain failed to reveal any acute abnormalities. The patient is being followed by physical therapy and occupational therapy. As per physical therapy notes, he did walk using a roller walker for about 250 feet. He required contact guard assistance with transfers. He walks with slow virginie step to gait narrow base of support, short step length and shuffling gait. Gait did not change with walker or without walker. He prefers to walk without the walker. Physical therapist recommended home with assistance and roller walker for home use. The patient denies any back pain. He denies any tingling, numbness sensation in the extremities. PHYSICAL EXAMINATION: Today revealed an elderly male. He is awake, oriented to place and person, follows commands appropriately, moves all 4 extremities voluntarily where he had 4+/5 grade muscle strength with relatively increased weakness in hand intrinsic muscles. He has some degree of muscle atrophy involving hand intrinsic muscles. Negative Tinel's sign over median nerve at the wrist and over ulnar nerve at the wrist and elbow and negative balance in both wrists. He had crepitus on range of motion of both knees and left ankle without any joint effusion. He had pain free range of motion of both hips and cervical, thoracic and lumbar spine. No tenderness to palpation over cervical, thoracic or lumbar spine area. He is independent with bed mobility and transfers. He is not using proper body mechanics during mobility. He tried to walk with somewhat wide-based gait with or without roller walker, but with walker, he is walking a little bit more confidently. He had healing skin laceration over anterior aspect of left wrist, two of them. He had equal perception of touch and pinprick sensation bilaterally. Deep tendon reflexes are 1-2+ and symmetrical with absent ankle jerks. ASSESSMENT: An elderly male with history of dementia, dyslipidemia, hypertension and coronary disease, gastroesophageal reflux disease, traumatic brain injury with recent depression and suicidal ideation, being treated for leukocytosis, thrombocytosis, and he also presents with clinical evidence of peripheral neuropathy probably from his alcohol use or from his age. RECOMMENDATIONS: As he is not having any back pain, he does not need any back support, braces or any therapy for his back, despite CT scan showing lumbar spinal stenosis clinically not having any problems. To encourage him to use a roller walker while up walking and I have advised him in proper body mechanics during transfers. Dr. Nolasco, I appreciate asking me to participate in the care of this interesting patient. I will be glad to follow him with you as needed for the rehabilitation. CAROLINA MCMULLEN MD DR: ARABELLA/bekah JOB#: [id number] / [id number]
[2017-03-31 03:00] VITALS: BP 155/90
[2017-03-31] MEDS: HALOPERIDOL LACTATE 5 MG/ML VIAL. IVP PRN ×4 (03:57→20:49)
[2017-03-31 07:00] VITALS: BP 159/93
--- NOTE | 2017-03-31 08:37 | PDOC ---
PROGRESS NOTES Subjective Subjective No complaints. Objective Objective Vital Signs Date Time Temp Pulse Resp B/P (MAP) Pulse Ox O2 Delivery O2 Flow Rate FiO2 03/31/17 07:00 96.9 76 18 159/93 (115) 98 Room Air 96.9 03/29/17 03:09 95.0 Intake and Output 03/31/17 06:59 Intake Total 550 ml Output Total 100 ml Balance 450 ml Intake Oral 550 ml Output Urine Total 100 ml # Voids 7 # Bowel Movements 1 Physical Exam Physical Exam He is alert and eating breakfast in bed and he had severe L1 vertebral body compression fracture with some retropulsion and without any significant central spinal stenosis as for ct lumbar spine. Assessment Assessment Problems Medical Problems: (1) Leukocytosis Status: Acute Plan Plan of Care To assisted living facility when medically stable. Comment Review of Relevant I have reviewed the following items fernando (where applicable) has been applied. Labs Microbiology 03/25/17 Blood Culture - Final, Complete 03/25/17 Blood Culture Result 1 (MYRON) - Final, Complete Medications Current Medications Sodium Chloride 1,000 ml @ 1,000 mls/hr 1X ONCE IV Last administered on 17:28; Start 03/25/17 at 17:30; Stop 03/25/17 at 18:29; Status DC Acetaminophen (Tylenol) 650 mg PRN Q4HRS PRN PO PAIN; Start 03/26/17 at 09:30 Bisacodyl (Dulcolax Supp) 10 mg PRN DAILY PRN RC CONSTIPATION; Start 03/26/17 at 09:30 Lisinopril (Prinivil) 10 mg DAILY PO Last administered on 03/30/17 08:37; Start 03/26/17 at 10:00 Lorazepam (Ativan) 0.5 mg PRN Q6HRS PRN PO AGITATION Last administered on 23:18; Start 03/26/17 at 09:30 Metoprolol Tartrate (Lopressor) 50 mg DAILY PO Last administered on 03/30/17 08 :36; Start 03/26/17 at 10:00 Quetiapine Fumarate (SEROquel) 12.5 mg BID PO Last administered on 03/30/17 21: 36; Start 03/26/17 at 10:00 Sennosides (Senna) 8.6 mg DAILY PO Last administered on 03/30/17 08:36; Start 03/26/17 at 10:00 Simvastatin (Zocor) 10 mg HS PO Last administered on 03/30/17 21:35; Start 03/26 at 21:00 Non-Formulary Medication 5 mg HS PO ; Start 03/26/17 at 21:00; Status UNV Multivitamins (Thera M Plus) 1 tab DAILY PO Last administered on 03/30/17 08:36 ; Start 03/26/17 at 10:00 Quetiapine Fumarate (SEROquel XR) 50 mg HS PO Last administered on 03/30/17 21: 35; Start 03/26/17 at 21:00 Chlordiazepoxide (Librium) 25 mg PRN Q6HRS PRN PO ANXIETY / AGITATION Last administered on 03/26/17 20:42; Start 03/26/17 at 09:30 Folic Acid (Folic Acid) 1 mg DAILY PO Last administered on 03/30/17 08:37; Start 03/26/17 at 13:00 Thiamine Mononitrate (Vitamin B-1) 100 mg DAILY PO Last administered on 08:37; Start 03/26/17 at 13:00 Aspirin (Ecotrin) 81 mg DAILYWBKFT PO Last administered on 03/30/17 08:37; Start 03/26/17 at 13:00 Lorazepam (Ativan) 2 mg PRN Q4HRS PRN IV ANXIETY / AGITATION Last administered on 03/27/17 00:29; Start 03/27/17 at 00:00; Stop 03/27/17 at 11:07; Status DC Haloperidol Lactate (Haldol) 5 mg PRN Q6HRS PRN IVP AGITATION; Start 03/27/17 at 00:00; Stop 03/27/17 at 11:07; Status DC Haloperidol Lactate (Haldol) 2.5 mg PRN Q6HRS PRN IVP AGITATION Last administered on 03/31/17 03:57; Start 03/27/17 at 11:15 Lorazepam (Ativan) 1 mg PRN Q4HRS PRN IV ANXIETY / AGITATION Last administered on 03/30/17 21:39; Start 03/27/17 at 11:15 Citalopram Hydrobromide (CeleXA) 10 mg DAILY PO Last administered on 03/30/17 08:36; Start 03/28/17 at 14:00 Piperacillin Sod/ Tazobactam Sod 3.375 gm/Sodium Chloride 50 ml @ 100 mls/hr Q6HRS IV Last administered on 03/30/17 06:14; Start 03/29/17 at 14:00; Stop 03/30 at 08:46; Status DC Tetanus/ Diphtheria Toxoids (Tenivac Syringe) 0.5 ml ONCE ONCE VAX IM Last administered on 03/30/17 15:46; Start 03/30/17 at 09:30; Stop 03/30/17 at 09:31; Status DC Active Scripts Active Reported Tylenol (Acetaminophen) 325 Mg Tablet 2 Tab PO PRN Q4HRS PRN Simvastatin 10 Mg Tablet 10 Mg PO HS Seroquel (Quetiapine Fumarate) 25 Mg Tablet 0.5 Tab PO BID Senna (Sennosides) 8.6 Mg Tablet 8.6 Mg PO DAILY Seroquel (Quetiapine Fumarate) 50 Mg Tablet 50 Mg PO HS Multivitamins (Multivitamin) 1 Each Tablet 1 Each PO DAILY Metoprolol Tartrate 50 Mg Tablet 50 Mg PO DAILY Melatonin 3 Mg Tablet 5 Mg PO HS Lorazepam 0.5 Mg Tablet 0.5 Mg PO PRN Q6HRS PRN Lisinopril 10 Mg Tablet 10 Mg PO DAILY Dulcolax (Bisacodyl) 10 Mg Supp.rect 10 Mg RC PRN DAILY PRN Vitals/I & O Vital Sign - Last 24 Hours 03/30/17 03/30/17 03/30/17 03/30/17 08:36 08:37 10:24 15:07 Temp 97.8 97.4 97.8 97.4 Pulse 77 77 58 70 Resp 18 B/P (MAP) 137/67 137/67 125/68 (87) 128/74 (92) Pulse Ox 96 95 O2 Delivery Room Air Room Air 03/30/17 03/30/17 03/30/17 03/31/17 19:00 20:00 23:00 03:00 Temp 97.1 97.2 97.1 97.2 Pulse 74 84 75 Resp 18 18 18 B/P (MAP) 124/73 (90) 123/75 (91) 155/90 (111) Pulse Ox 95 96 98 O2 Delivery Room Air Room Air Room Air Room Air 03/31/17 07:00 Temp 96.9 96.9 Pulse 76 Resp 18 B/P (MAP) 159/93 (115) Pulse Ox 98 O2 Delivery Room Air Intake and Output 03/30/17 03/30/17 03/31/17 14:59 22:59 06:59 Intake Total 450 ml 100 ml Output Total 100 ml Balance 450 ml 0 ml CAROLINA MCMULLEN MD March 31, 2017 08:37
--- NOTE | 2017-03-31 08:44 | PDOC ---
Infectious Disease Note Subjective Subjective Doing ok. Hungry. Wrist ok. No back pain ROS ROS GEN: Denies fevers, chills, sweats HEENT: Denies blurred vision, sore throat CV: Denies chest pain RESP: Denies shortness of air, cough GI: Denies n/v/d NEURO: Denies confusion, dizziness MSK: Denies weakness, joint pain/swelling Vital Sign Vital Signs Vital Signs Date Time Temp Pulse Resp B/P (MAP) Pulse Ox O2 Delivery O2 Flow Rate FiO2 03/31/17 07:00 96.9 76 18 159/93 (115) 98 Room Air 96.9 Physical Exam PHYSICAL EXAM GENERAL: NAD, Alert, in bed HEENT: PERRL, OC/OP - clear NECK: Supple, no JVD, no LN LUNGS: Clear HEART: S1S2, no gallop, no murmur ABD: Soft, NT, no organomegaly, no rebound EXT: No edema, no cyanosis. Left wrist wound is healing ROOM CLERK: Alert, oriented x 3, no focal neurologic deficit SKIN: No rash IV: ok Objective Assessment GPR - bacteremia 03/25. 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 Fractures in thoracic area as well Leukocytosis - ? reactive as improving prior to abx Plan Plan of Care Tetanus immunization given 03/30 Appreciate Neurosurgery eval ID to sign off TIM CARRERA MD March 31, 2017 08:44
[2017-03-31] MEDS: ASPIRIN ENTERIC COATED 81 MG TABLET.DR. PO SCH (08:54)
[2017-03-31] MEDS: SENNOSIDES 8.6 MG TABLET PO SCH (08:54)
[2017-03-31] MEDS: THIAMINE 100 MG TABLET. PO SCH (08:54)
[2017-03-31] MEDS: QUEtiapine 25 MG TABLET. PO SCH ×2 (08:55→20:15)
[2017-03-31] MEDS: MULTIVITAMIN with MINERAL TABLET. PO SCH (08:55)
[2017-03-31] MEDS: FOLIC ACID 1 MG TABLET. PO SCH (08:55)
[2017-03-31] MEDS: CITALOPRAM 10 MG TABLET. PO SCH (08:55)
[2017-03-31] MEDS: LISINOPRIL 10 MG TABLET PO SCH (08:56)
[2017-03-31] MEDS: METOPROLOL TART IMMED RELEASE 50 MG TABLET. PO SCH (08:57)
[2017-03-31 09:34] LABS: BASO # 0.1 x10^3/uL (0.0-0.2); BASO % 1 % (0-3); EOS % 5 % (0-3); HEMATOCRIT 36.2 % (39.0-53.0); HEMOGLOBIN 12.7 g/dL (13.0-17.5); LYMPH # 1.7 x10^3/uL (1.0-4.8); LYMPH % 16 % (24-48); MEAN CORPUSCULAR HEMOGLOBIN 30 pg (25-35); MEAN CORPUSCULAR HGB CONC 35 g/dL (31-37); MEAN CORPUSCULAR VOLUME 85 fL (79-100); MONO % 11 % (0-9); NEUT % 67 % (31-73); RED BLOOD COUNT 4.25 x10^6/uL (4.30-5.70); RED CELL DISTRIBUTION WIDTH 15.8 % (11.5-14.5); WHITE BLOOD COUNT 10.5 x10^3/uL (4.0-11.0)
[2017-03-31 09:52] LABS: PLATELET COUNT 992 x10^3/uL (140-400)
[2017-03-31 09:56] LABS: CREATININE 0.8 mg/dL (0.7-1.3); GFR 91.2; POTASSIUM 3.7 mmol/L (3.5-5.1)
--- NOTE | 2017-03-31 10:14 | PDOC ---
PROGRESS NOTES Chief Complaint Chief Complaint 1. Hyponatremia, mild 2. Dementia, hx TBI per documentation 3. Leukocytosis, thrombocytosis, anemia - no signs of infection 4. ETOH drinker, heavy 5. Hx CAD, stab;e 6. Dementia per documentation 7. [place] resident ([place]) 8. DNR 9. Depression, non-suicidal 10. Encephalopathy History of Present Illness History of Present Illness Denies suicidal ideation Not aggressive today Able to walk using walker and assistance Discussed care with nurse - DC'd 1-to-1 observation Vitals Vitals Vital Signs Date Time Temp Pulse Resp B/P (MAP) Pulse Ox O2 Delivery O2 Flow Rate FiO2 03/31/17 08:57 76 159/93 03/31/17 08:00 Room Air 03/31/17 07:00 96.9 18 98 96.9 Physical Exam General: Alert, Cooperative, No acute distress Heart: Regular rate, Normal S1, Normal S2 Lungs: Clear Abdomen: Normal bowel sounds, Soft, No tenderness, No hepatosplenomegaly, No masses Extremities: No clubbing, No cyanosis, No edema, Normal pulses, No tenderness/ swelling Skin: No rashes, No breakdown, Other (healing L wrist injury) Labs LABS Laboratory Tests Test 03/31/17 08:50 White Blood Count 10.5 x10^3/uL (4.0-11.0) Red Blood Count 4.25 x10^6/uL (4.30-5.70) Hemoglobin 12.7 g/dL (13.0-17.5) Hematocrit 36.2 % (39.0-53.0) Mean Corpuscular Volume 85 fL (79-100) Mean Corpuscular Hemoglobin 30 pg (25-35) Mean Corpuscular Hemoglobin Concent 35 g/dL (31-37) Red Cell Distribution Width 15.8 % (11.5-14.5) Platelet Count 992 x10^3/uL (140-400) Neutrophils (%) (Auto) 67 % (31-73) Lymphocytes (%) (Auto) 16 % (24-48) Monocytes (%) (Auto) 11 % (0-9) Eosinophils (%) (Auto) 5 % (0-3) Basophils (%) (Auto) 1 % (0-3) Neutrophils # (Auto) 7.1 x10^3uL (1.8-7.7) Lymphocytes # (Auto) 1.7 x10^3/uL (1.0-4.8) Monocytes # (Auto) 1.2 x10^3/uL (0.0-1.1) Eosinophils # (Auto) 0.5 x10^3/uL (0.0-0.7) Basophils # (Auto) 0.1 x10^3/uL (0.0-0.2) Sodium Level 136 mmol/L (136-145) Potassium Level 3.7 mmol/L (3.5-5.1) Chloride Level 101 mmol/L (98-107) Carbon Dioxide Level 28 mmol/L (21-32) Anion Gap 7 (6-14) Blood Urea Nitrogen 14 mg/dL (8-26) Creatinine 0.8 mg/dL (0.7-1.3) Estimated GFR (Cockcroft-Gault) 91.2 Glucose Level 109 mg/dL (70-99) Calcium Level 9.0 mg/dL (8.5-10.1) Review of Systems Review of Systems General: denies weakness Neuro: denies back pain Psych: denies SI Assessment and Plan Assessmemt and Plan Problems Medical Problems: (1) Leukocytosis Status: Acute 1. Hyponatremia, mild 2. Dementia, hx TBI per documentation 3. Leukocytosis, thrombocytosis, anemia - no signs of infection 4. ETOH drinker, heavy 5. Hx CAD, stab;e 6. Dementia per documentation 7. [place] resident ([place]) 8. DNR 9. Depression, non-suicidal 10. Encephalopathy Plan: 1. ID D/C'd Zosyn and signed off 2. NS consulted - fracture at L1, do not recommend any support, brace or therapy as patient is not having any pain 3. Hope to discharge when stable to [facility] 4. Discontinued 1-to-1 obvs as patient has not had any SI for 3 days 5. Repeat labs in AM 5. Continue PT/OT 6. Subspecialist input appreciated Problems: Comment Review of Relevant I have reviewed the following items fernando (where applicable) has been applied. Labs Laboratory Tests Test 03/31/17 08:50 White Blood Count 10.5 x10^3/uL (4.0-11.0) Red Blood Count 4.25 x10^6/uL (4.30-5.70) Hemoglobin 12.7 g/dL (13.0-17.5) Hematocrit 36.2 % (39.0-53.0) Mean Corpuscular Volume 85 fL (79-100) Mean Corpuscular Hemoglobin 30 pg (25-35) Mean Corpuscular Hemoglobin Concent 35 g/dL (31-37) Red Cell Distribution Width 15.8 % (11.5-14.5) Platelet Count 992 x10^3/uL (140-400) Neutrophils (%) (Auto) 67 % (31-73) Lymphocytes (%) (Auto) 16 % (24-48) Monocytes (%) (Auto) 11 % (0-9) Eosinophils (%) (Auto) 5 % (0-3) Basophils (%) (Auto) 1 % (0-3) Neutrophils # (Auto) 7.1 x10^3uL (1.8-7.7) Lymphocytes # (Auto) 1.7 x10^3/uL (1.0-4.8) Monocytes # (Auto) 1.2 x10^3/uL (0.0-1.1) Eosinophils # (Auto) 0.5 x10^3/uL (0.0-0.7) Basophils # (Auto) 0.1 x10^3/uL (0.0-0.2) Sodium Level 136 mmol/L (136-145) Potassium Level 3.7 mmol/L (3.5-5.1) Chloride Level 101 mmol/L (98-107) Carbon Dioxide Level 28 mmol/L (21-32) Anion Gap 7 (6-14) Blood Urea Nitrogen 14 mg/dL (8-26) Creatinine 0.8 mg/dL (0.7-1.3) Estimated GFR (Cockcroft-Gault) 91.2 Glucose Level 109 mg/dL (70-99) Calcium Level 9.0 mg/dL (8.5-10.1) Laboratory Tests Test 03/31/17 08:50 White Blood Count 10.5 x10^3/uL (4.0-11.0) Red Blood Count 4.25 x10^6/uL (4.30-5.70) Hemoglobin 12.7 g/dL (13.0-17.5) Hematocrit 36.2 % (39.0-53.0) Mean Corpuscular Volume 85 fL (79-100) Mean Corpuscular Hemoglobin 30 pg (25-35) Mean Corpuscular Hemoglobin Concent 35 g/dL (31-37) Red Cell Distribution Width 15.8 % (11.5-14.5) Platelet Count 992 x10^3/uL (140-400) Neutrophils (%) (Auto) 67 % (31-73) Lymphocytes (%) (Auto) 16 % (24-48) Monocytes (%) (Auto) 11 % (0-9) Eosinophils (%) (Auto) 5 % (0-3) Basophils (%) (Auto) 1 % (0-3) Neutrophils # (Auto) 7.1 x10^3uL (1.8-7.7) Lymphocytes # (Auto) 1.7 x10^3/uL (1.0-4.8) Monocytes # (Auto) 1.2 x10^3/uL (0.0-1.1) Eosinophils # (Auto) 0.5 x10^3/uL (0.0-0.7) Basophils # (Auto) 0.1 x10^3/uL (0.0-0.2) Sodium Level 136 mmol/L (136-145) Potassium Level 3.7 mmol/L (3.5-5.1) Chloride Level 101 mmol/L (98-107) Carbon Dioxide Level 28 mmol/L (21-32) Anion Gap 7 (6-14) Blood Urea Nitrogen 14 mg/dL (8-26) Creatinine 0.8 mg/dL (0.7-1.3) Estimated GFR (Cockcroft-Gault) 91.2 Glucose Level 109 mg/dL (70-99) Calcium Level 9.0 mg/dL (8.5-10.1) Microbiology 03/25/17 Blood Culture - Final, Complete 03/25/17 Blood Culture Result 1 (MYRON) - Final, Complete Medications Current Medications Sodium Chloride 1,000 ml @ 1,000 mls/hr 1X ONCE IV Last administered on t 17:28; Start 03/25/17 at 17:30; Stop 03/25/17 at 18:29; Status DC Acetaminophen (Tylenol) 650 mg PRN Q4HRS PRN PO PAIN; Start 03/26/17 at 09:30 Bisacodyl (Dulcolax Supp) 10 mg PRN DAILY PRN RC CONSTIPATION; Start 03/26/17 at 09:30 Lisinopril (Prinivil) 10 mg DAILY PO Last administered on 03/31/17 08:56; Start 03/26/17 at 10:00 Lorazepam (Ativan) 0.5 mg PRN Q6HRS PRN PO AGITATION Last administered on 23:18; Start 03/26/17 at 09:30 Metoprolol Tartrate (Lopressor) 50 mg DAILY PO Last administered on 03/31/17 08:57; Start 03/26/17 at 10:00 Quetiapine Fumarate (SEROquel) 12.5 mg BID PO Last administered on 03/31/17 08 :55; Start 03/26/17 at 10:00 Sennosides (Senna) 8.6 mg DAILY PO Last administered on 03/31/17 08:54; Start 03/26/17 at 10:00 Simvastatin (Zocor) 10 mg HS PO Last administered on 03/30/17 21:35; Start 03/26 at 21:00 Non-Formulary Medication 5 mg HS PO ; Start 03/26/17 at 21:00; Status UNV Multivitamins (Thera M Plus) 1 tab DAILY PO Last administered on 03/31/17 08: 55; Start 03/26/17 at 10:00 Quetiapine Fumarate (SEROquel XR) 50 mg HS PO Last administered on 03/30/17 21: 35; Start 03/26/17 at 21:00 Chlordiazepoxide (Librium) 25 mg PRN Q6HRS PRN PO ANXIETY / AGITATION Last administered on 03/26/17 20:42; Start 03/26/17 at 09:30 Folic Acid (Folic Acid) 1 mg DAILY PO Last administered on 03/31/17 08:55; Start 03/26/17 at 13:00 Thiamine Mononitrate (Vitamin B-1) 100 mg DAILY PO Last administered on 08:54; Start 03/26/17 at 13:00 Aspirin (Ecotrin) 81 mg DAILYWBKFT PO Last administered on 03/31/17 08:54; Start 03/26/17 at 13:00 Lorazepam (Ativan) 2 mg PRN Q4HRS PRN IV ANXIETY / AGITATION Last administered on 03/27/17 00:29; Start 03/27/17 at 00:00; Stop 03/27/17 at 11:07; Status DC Haloperidol Lactate (Haldol) 5 mg PRN Q6HRS PRN IVP AGITATION; Start 03/27/17 at 00:00; Stop 03/27/17 at 11:07; Status DC Haloperidol Lactate (Haldol) 2.5 mg PRN Q6HRS PRN IVP AGITATION Last administered on 03/31/17 03:57; Start 03/27/17 at 11:15 Lorazepam (Ativan) 1 mg PRN Q4HRS PRN IV ANXIETY / AGITATION Last administered on 03/30/17 21:39; Start 03/27/17 at 11:15 Citalopram Hydrobromide (CeleXA) 10 mg DAILY PO Last administered on 03/31/17 08:55; Start 03/28/17 at 14:00 Piperacillin Sod/ Tazobactam Sod 3.375 gm/Sodium Chloride 50 ml @ 100 mls/hr Q6HRS IV Last administered on 03/30/17 06:14; Start 03/29/17 at 14:00; Stop 03/30 at 08:46; Status DC Tetanus/ Diphtheria Toxoids (Tenivac Syringe) 0.5 ml ONCE ONCE VAX IM Last administered on 03/30/17 15:46; Start 03/30/17 at 09:30; Stop 03/30/17 at 09:31; Status DC Active Scripts Active Reported Tylenol (Acetaminophen) 325 Mg Tablet 2 Tab PO PRN Q4HRS PRN Simvastatin 10 Mg Tablet 10 Mg PO HS Seroquel (Quetiapine Fumarate) 25 Mg Tablet 0.5 Tab PO BID Senna (Sennosides) 8.6 Mg Tablet 8.6 Mg PO DAILY Seroquel (Quetiapine Fumarate) 50 Mg Tablet 50 Mg PO HS Multivitamins (Multivitamin) 1 Each Tablet 1 Each PO DAILY Metoprolol Tartrate 50 Mg Tablet 50 Mg PO DAILY Melatonin 3 Mg Tablet 5 Mg PO HS Lorazepam 0.5 Mg Tablet 0.5 Mg PO PRN Q6HRS PRN Lisinopril 10 Mg Tablet 10 Mg PO DAILY Dulcolax (Bisacodyl) 10 Mg Supp.rect 10 Mg RC PRN DAILY PRN Vitals/I & O Vital Sign - Last 24 Hours 03/30/17 03/30/17 03/30/17 03/30/17 10:24 15:07 19:00 20:00 Temp 97.8 97.4 97.8 97.4 Pulse 58 70 74 Resp 18 18 B/P (MAP) 125/68 (87) 128/74 (92) 124/73 (90) Pulse Ox 96 95 95 O2 Delivery Room Air Room Air Room Air Room Air 03/30/17 03/31/17 03/31/17 03/31/17 23:00 03:00 07:00 08:00 Temp 97.1 97.2 96.9 97.1 97.2 96.9 Pulse 84 75 76 Resp 18 18 18 B/P (MAP) 123/75 (91) 155/90 (111) 159/93 (115) Pulse Ox 96 98 98 O2 Delivery Room Air Room Air Room Air Room Air 03/31/17 03/31/17 08:56 08:57 Pulse 76 76 B/P (MAP) 159/93 159/93 Intake and Output 03/30/17 03/30/17 03/31/17 14:59 22:59 06:59 Intake Total 450 ml 100 ml Output Total 100 ml Balance 450 ml 0 ml MICHELLE CASON III DO March 31, 2017 10:14
[2017-03-31 14:54] VITALS: BP 133/81
[2017-03-31 19:50] VITALS: BP 125/69
[2017-03-31] MEDS: QUEtiapine 50 MG TAB.ER.24H. PO SCH (20:15)
[2017-03-31] MEDS: SIMVASTATIN 10 MG TABLET PO SCH (20:15)
[2017-03-31 23:15] VITALS: BP 125/69
[2017-04-01 07:00] VITALS: BP 119/77
[2017-04-01 08:00] LABS: CALCIUM 9.2 mg/dL (8.5-10.1); CREATININE 0.8 mg/dL (0.7-1.3); GFR 91.2; POTASSIUM 4.2 mmol/L (3.5-5.1)
[2017-04-01] MEDS: ASPIRIN ENTERIC COATED 81 MG TABLET.DR. PO SCH (08:00)
--- NOTE | 2017-04-01 08:54 | PDOC ---
PROGRESS NOTES Subjective Subjective No new complaints. Objective Objective Vital Signs Date Time Temp Pulse Resp B/P (MAP) Pulse Ox O2 Delivery O2 Flow Rate FiO2 04/01/17 07:00 98.1 90 18 119/77 (91) 93 Room Air 98.1 03/29/17 03:09 95.0 Intake and Output 04/01/17 06:59 Intake Total 840 ml Output Total 400 ml Balance 440 ml Intake Oral 840 ml Output Urine Total 400 ml # Voids 3 # Bowel Movements 1 Physical Exam Physical Exam He continues to get up and move around by himself.He is sitting at nursing station in a recliner and eating breakfast. Assessment Assessment Problems Medical Problems: (1) Leukocytosis Status: Acute Plan Plan of Care Agree with plans for discharge and to encourage him to use roller walker while up. Comment Review of Relevant I have reviewed the following items fernando (where applicable) has been applied. Labs Laboratory Tests Test 03/31/17 08:50 04/01/17 07:40 White Blood Count 10.5 x10^3/uL (4.0-11.0) Red Blood Count 4.25 x10^6/uL (4.30-5.70) Hemoglobin 12.7 g/dL (13.0-17.5) Hematocrit 36.2 % (39.0-53.0) Mean Corpuscular Volume 85 fL (79-100) Mean Corpuscular Hemoglobin 30 pg (25-35) Mean Corpuscular Hemoglobin Concent 35 g/dL (31-37) Red Cell Distribution Width 15.8 % (11.5-14.5) Platelet Count 992 x10^3/uL (140-400) Neutrophils (%) (Auto) 67 % (31-73) Lymphocytes (%) (Auto) 16 % (24-48) Monocytes (%) (Auto) 11 % (0-9) Eosinophils (%) (Auto) 5 % (0-3) Basophils (%) (Auto) 1 % (0-3) Neutrophils # (Auto) 7.1 x10^3uL (1.8-7.7) Lymphocytes # (Auto) 1.7 x10^3/uL (1.0-4.8) Monocytes # (Auto) 1.2 x10^3/uL (0.0-1.1) Eosinophils # (Auto) 0.5 x10^3/uL (0.0-0.7) Basophils # (Auto) 0.1 x10^3/uL (0.0-0.2) Sodium Level 136 mmol/L (136-145) 136 mmol/L (136-145) Potassium Level 3.7 mmol/L (3.5-5.1) 4.2 mmol/L (3.5-5.1) Chloride Level 101 mmol/L (98-107) 100 mmol/L (98-107) Carbon Dioxide Level 28 mmol/L (21-32) 28 mmol/L (21-32) Anion Gap 7 (6-14) 8 (6-14) Blood Urea Nitrogen 14 mg/dL (8-26) 12 mg/dL (8-26) Creatinine 0.8 mg/dL (0.7-1.3) 0.8 mg/dL (0.7-1.3) Estimated GFR (Cockcroft-Gault) 91.2 91.2 Glucose Level 109 mg/dL (70-99) 101 mg/dL (70-99) Calcium Level 9.0 mg/dL (8.5-10.1) 9.2 mg/dL (8.5-10.1) Laboratory Tests Test 04/01/17 07:40 Sodium Level 136 mmol/L (136-145) Potassium Level 4.2 mmol/L (3.5-5.1) Chloride Level 100 mmol/L (98-107) Carbon Dioxide Level 28 mmol/L (21-32) Anion Gap 8 (6-14) Blood Urea Nitrogen 12 mg/dL (8-26) Creatinine 0.8 mg/dL (0.7-1.3) Estimated GFR (Cockcroft-Gault) 91.2 Glucose Level 101 mg/dL (70-99) Calcium Level 9.2 mg/dL (8.5-10.1) Microbiology 03/25/17 Blood Culture - Final, Complete 03/25/17 Blood Culture Result 1 (MYRON) - Final, Complete Medications Current Medications Sodium Chloride 1,000 ml @ 1,000 mls/hr 1X ONCE IV Last administered on t 17:28; Start 03/25/17 at 17:30; Stop 03/25/17 at 18:29; Status DC Acetaminophen (Tylenol) 650 mg PRN Q4HRS PRN PO PAIN; Start 03/26/17 at 09:30 Bisacodyl (Dulcolax Supp) 10 mg PRN DAILY PRN RC CONSTIPATION; Start 03/26/17 at 09:30 Lisinopril (Prinivil) 10 mg DAILY PO Last administered on 03/31/17 08:56; Start 03/26/17 at 10:00 Lorazepam (Ativan) 0.5 mg PRN Q6HRS PRN PO AGITATION Last administered on 23:18; Start 03/26/17 at 09:30 Metoprolol Tartrate (Lopressor) 50 mg DAILY PO Last administered on 03/31/17 08:57; Start 03/26/17 at 10:00 Quetiapine Fumarate (SEROquel) 12.5 mg BID PO Last administered on 03/31/17 20 :15; Start 03/26/17 at 10:00 Sennosides (Senna) 8.6 mg DAILY PO Last administered on 03/31/17 08:54; Start 03/26/17 at 10:00 Simvastatin (Zocor) 10 mg HS PO Last administered on 03/31/17 20:15; Start 03/26/17 at 21:00 Non-Formulary Medication 5 mg HS PO ; Start 03/26/17 at 21:00; Status UNV Multivitamins (Thera M Plus) 1 tab DAILY PO Last administered on 03/31/17 08: 55; Start 03/26/17 at 10:00 Quetiapine Fumarate (SEROquel XR) 50 mg HS PO Last administered on 03/31/17 20 :15; Start 03/26/17 at 21:00 Chlordiazepoxide (Librium) 25 mg PRN Q6HRS PRN PO ANXIETY / AGITATION Last administered on 03/26/17 20:42; Start 03/26/17 at 09:30 Folic Acid (Folic Acid) 1 mg DAILY PO Last administered on 03/31/17 08:55; Start 03/26/17 at 13:00 Thiamine Mononitrate (Vitamin B-1) 100 mg DAILY PO Last administered on 08:54; Start 03/26/17 at 13:00 Aspirin (Ecotrin) 81 mg DAILYWBKFT PO Last administered on 03/31/17 08:54; Start 03/26/17 at 13:00 Lorazepam (Ativan) 2 mg PRN Q4HRS PRN IV ANXIETY / AGITATION Last administered on 03/27/17 00:29; Start 03/27/17 at 00:00; Stop 03/27/17 at 11:07; Status DC Haloperidol Lactate (Haldol) 5 mg PRN Q6HRS PRN IVP AGITATION; Start 03/27/17 at 00:00; Stop 03/27/17 at 11:07; Status DC Haloperidol Lactate (Haldol) 2.5 mg PRN Q6HRS PRN IVP AGITATION Last administered on 03/31/17 20:49; Start 03/27/17 at 11:15 Lorazepam (Ativan) 1 mg PRN Q4HRS PRN IV ANXIETY / AGITATION Last administered on 04/01/17 00:15; Start 03/27/17 at 11:15 Citalopram Hydrobromide (CeleXA) 10 mg DAILY PO Last administered on 03/31/17 08:55; Start 03/28/17 at 14:00 Piperacillin Sod/ Tazobactam Sod 3.375 gm/Sodium Chloride 50 ml @ 100 mls/hr Q6HRS IV Last administered on 03/30/17 06:14; Start 03/29/17 at 14:00; Stop 03/30 at 08:46; Status DC Tetanus/ Diphtheria Toxoids (Tenivac Syringe) 0.5 ml ONCE ONCE VAX IM Last administered on 03/30/17 15:46; Start 03/30/17 at 09:30; Stop 03/30/17 at 09:31; Status DC Active Scripts Active Reported Tylenol (Acetaminophen) 325 Mg Tablet 2 Tab PO PRN Q4HRS PRN Simvastatin 10 Mg Tablet 10 Mg PO HS Seroquel (Quetiapine Fumarate) 25 Mg Tablet 0.5 Tab PO BID Senna (Sennosides) 8.6 Mg Tablet 8.6 Mg PO DAILY Seroquel (Quetiapine Fumarate) 50 Mg Tablet 50 Mg PO HS Multivitamins (Multivitamin) 1 Each Tablet 1 Each PO DAILY Metoprolol Tartrate 50 Mg Tablet 50 Mg PO DAILY Melatonin 3 Mg Tablet 5 Mg PO HS Lorazepam 0.5 Mg Tablet 0.5 Mg PO PRN Q6HRS PRN Lisinopril 10 Mg Tablet 10 Mg PO DAILY Dulcolax (Bisacodyl) 10 Mg Supp.rect 10 Mg RC PRN DAILY PRN Vitals/I & O Vital Sign - Last 24 Hours 03/31/17 03/31/17 03/31/17 03/31/17 08:56 08:57 14:54 19:50 Temp 98.0 97.9 98.0 97.9 Pulse 76 76 64 67 Resp 18 16 B/P (MAP) 159/93 159/93 133/81 (98) 125/69 (87) Pulse Ox 97 95 O2 Delivery Room Air Room Air 03/31/17 03/31/17 04/01/17 04/01/17 20:00 23:15 03:53 07:00 Temp 96.8 98.1 96.8 98.1 Pulse 64 90 Resp 16 16 18 B/P (MAP) 125/69 (87) 119/77 (91) Pulse Ox 94 93 O2 Delivery Room Air Room Air Room Air Room Air Intake and Output 03/31/17 03/31/17 04/01/17 14:59 22:59 06:59 Intake Total 720 ml 120 ml Output Total 400 ml Balance 720 ml -280 ml CAROLINA MCMULLEN MD April 01, 2017 08:53
[2017-04-01] MEDS: MULTIVITAMIN with MINERAL TABLET. PO SCH (09:02)
[2017-04-01] MEDS: METOPROLOL TART IMMED RELEASE 50 MG TABLET. PO SCH (09:02)
[2017-04-01] MEDS: THIAMINE 100 MG TABLET. PO SCH (09:02)
[2017-04-01] MEDS: FOLIC ACID 1 MG TABLET. PO SCH (09:02)
[2017-04-01] MEDS: SENNOSIDES 8.6 MG TABLET PO SCH (09:02)
[2017-04-01 09:03] VITALS: BP 119/77
[2017-04-01] MEDS: CITALOPRAM 10 MG TABLET. PO SCH (09:03)
[2017-04-01] MEDS: LISINOPRIL 10 MG TABLET PO SCH (09:03)
[2017-04-01] MEDS: QUEtiapine 25 MG TABLET. PO SCH (09:03)
[2017-04-01 09:06] LABS: BASO # 0.1 x10^3/uL (0.0-0.2); BASO % 1 % (0-3); EOS % 5 % (0-3); HEMATOCRIT 37.8 % (39.0-53.0); HEMOGLOBIN 13.2 g/dL (13.0-17.5); LYMPH # 1.7 x10^3/uL (1.0-4.8); LYMPH % 16 % (24-48); MEAN CORPUSCULAR HEMOGLOBIN 30 pg (25-35); MEAN CORPUSCULAR HGB CONC 35 g/dL (31-37); MEAN CORPUSCULAR VOLUME 86 fL (79-100); MONO % 10 % (0-9); NEUT % 69 % (31-73); RED BLOOD COUNT 4.41 x10^6/uL (4.30-5.70); RED CELL DISTRIBUTION WIDTH 15.7 % (11.5-14.5); WHITE BLOOD COUNT 10.7 x10^3/uL (4.0-11.0)
[2017-04-01 09:11] LABS: PLATELET COUNT 1104 x10^3/uL (140-400)
== END 2017-04-01 10:06 | disposition home or self-care (01) | DRG 542 ==
LOC: ER 17:46 → 6 SOUTH 18:40
PROVIDERS: ADMIT Internal Medicine; ATTEND Internal Medicine
DX: M48.56XA Collapsed vertebra, not elsewhere classified, lumbar region, initial encounter for fracture (principal); G93.40 Encephalopathy, unspecified; E87.1 Hypo-osmolality and hyponatremia; R45.851 Suicidal ideations; J98.11 Atelectasis; M87.9 Osteonecrosis, unspecified; R78.81 Bacteremia; M48.54XA Collapsed vertebra, not elsewhere classified, thoracic region, initial encounter for fracture; G62.9 Polyneuropathy, unspecified; B96.89 Other specified bacterial agents as the cause of diseases classified elsewhere; D47.3 Essential (hemorrhagic) thrombocythemia; D64.9 Anemia, unspecified; D72.829 Elevated white blood cell count, unspecified; D75.89 Other specified diseases of blood and blood-forming organs; E78.5 Hyperlipidemia, unspecified; F03.90 Unspecified dementia, unspecified severity, without behavioral disturbance, psychotic disturbance, mood disturbance, and anxiety; F32.9 Major depressive disorder, single episode, unspecified; I11.0 Hypertensive heart disease with heart failure; I25.10 Atherosclerotic heart disease of native coronary artery without angina pectoris; I50.9 Heart failure, unspecified; K21.9 Gastro-esophageal reflux disease without esophagitis; K59.00 Constipation, unspecified; R33.9 Retention of urine, unspecified; Z66 Do not resuscitate; Z79.82 Long term (current) use of aspirin; Z87.891 Personal history of nicotine dependence; Z91.5 Personal history of self-harm
CPT/HCPCS: 36415; 70450; 71010; 71250; 72131; 80048; 80053; 81001; 83735; 85007; 85027; 87040; 87205; 90714; 93005; G0480; G0481; G6038; J1630; J2060; J2543; J7030; 80196; 92610; 97110; 97116; 97530; 97535; 99285-25